=== PATIENT | female | born 1950 | race Caucasian/White ===

== ENCOUNTER 2019-05-18 19:17 | Inpatient (IN) | payer OTHER ==
[~2019-05-18] VITALS: Ht 175.3 cm; Wt 88.5 kg
--- OUTSIDE RECORDS SUMMARY | 2019-05-18 19:19 | XMS REPORT | Clinical Summary ---
Author Author [facility] Organization [facility] Address Unknown Phone Unavailable Care Team Providers Care Load Manager Name Role Phone Lorne Whitfield MD PCP Allergies Comments Active Allergy Reactions Severity Noted Date Adhesive Tape-Silicones 02/24/2018 Codeine Rash High 11/11/2017 Medications End Date Status Medication Sig Dispensed Refills Start Date Active aspirin (ECOTRIN) 81 MG Take 81 mg by 0 enteric coated tablet mouth every morning. Active gabapentin (NEURONTIN) Take 1 270 capsule 3 300 mg capsule (300 7 capsuleIndications: mg total) by Uncontrolled type 2 mouth 3 diabetes mellitus with (three) times hyperglycemia, with a day. long-term current use of insulin (HCC) Active gentamicin (GARAMYCIN) To use at 0 0.1 % cream peritoneal 8 dialysis site Active lactulose (CHRONULAC) 10 20 g 2 (two) 0 gram/15 mL solution times a day 8 as needed. Active amLODIPine (NORVASC) 10 10 mg daily. 0 mg tablet 8 07/30/2019 Active insulin degludec (TRESIBA Inject 100 36 mL 3 FLEXTOUCH U-200) 200 Units under 8 unit/mL (3 mL) insulin the skin penIndications: every Uncontrolled type 2 morning. diabetes mellitus with hyperglycemia, with long-term current use of insulin (HCC), Essential hypertension Active traZODone (DESYREL) 150 Take 1 tablet 90 tablet 0 201 MG tabletIndications: (150 mg 8 Anxiety with depression total) by mouth nightly for 90 days. Active buPROPion XL (WELLBUTRIN Take 1 tablet 90 tablet 0 XL) 300 MG 24 hr (300 mg 8 tabletIndications: total) by Anxiety with depression mouth daily for 90 days. Active ONETOUCH VERIO strip test Use to test 3 strips blood glucose 8 3 times a day Active ONETOUCH VERIO SYSTEM USE ALONG 3 misc WITH TEST 8 STRIPS TO TEST BLOOD GLUCOSE 3 TIMES A DAY Active ULTRA THIN LANCETS 31 Use to test 3 gauge misc blood glucose 8 3 times a day Active ondansetron (ZOFRAN) 4 MG 0 tablet 8 09/29/2019 Active clopidogrel (PLAVIX) 75 Take 1 tablet 90 tablet 3 mg tabletIndications: (75 mg total) 8 Coronary artery disease by mouth of [place] artery of daily. [place] heart with stable angina pectoris ([facility]) Active carvedilol (COREG) 6.25 6.25 mg 2 0 MG tablet (two) times a 8 day with meals. Active furosemide (LASIX) 40 mg 0 tablet 8 12/18/2019 Active hydrALAZINE (APRESOLINE) Take 1 tablet 90 tablet 3 10 MG tabletIndications: (10 mg total) 9 Essential hypertension by mouth every morning. Take only if BP greater than 160 mmHg. 05/20/2019 Active semaglutide (OZEMPIC) Inject 0.25 1.5 mL 2 0.25 mg or 0.5 mg(2 mg under the 9 mg/1.5 mL) pen skin once a injectorIndications: Type week for 2 diabetes mellitus with days. other specified complication, with long-term current use of insulin ([facility]) 06/27/2019 Active tiZANidine (ZANAFLEX) 2 Take 1 tablet 30 tablet 2 MG tabletIndications: (2 mg total) 9 Essential hypertension by mouth every 8 (eight) hours as needed for muscle spasms for up to 90 days. 03/30/2020 Active escitalopram (LEXAPRO) 20 Take 1 tablet 90 tablet 3 MG tabletIndications: (20 mg total) 9 Anxiety with depression by mouth daily. 06/29/2019 Active triamcinolone (KENALOG) Apply 80 g 2 0.1 % topically 2 9 ointmentIndications: (two) times a Allergic contact day for 90 dermatitis, unspecified days. trigger Active acetaZOLAMIDE (DIAMOX) 0 500 mg capsule 9 Active PROLENSA 0.07 % 0 ophthalmic solution 9 Active moxifloxacin (VIGAMOX) 0 0.5 % ophthalmic solution 9 Active prednisoLONE acetate 0 (PRED FORTE) 1 % 9 ophthalmic suspension 06/06/2019 Active traMADol (ULTRAM) 50 mg Take 1 tablet 60 tablet 0 tabletIndications: (50 mg total) 9 Essential hypertension by mouth every 8 (eight) hours as needed for moderate pain for up to 30 days. 07/30/2018 Discontinued traZODone (DESYREL) 150 Take 1 tablet 90 tablet 0 MG tablet (150 mg 7 total) by mouth nightly for 90 days. 10/22/2018 fluticasone-vilanterol Inhale 1 30 each 11 (BREO ELLIPTA) 200-25 inhalations 7 mcg/dose blister with once daily. device powder for inhalationIndications: Chronic bronchitis, unspecified chronic bronchitis type (HCC) 10/29/2018 albuterol (VENTOLIN HFA) Inhale 2 18 g 11 90 mcg/actuation puffs every 6 7 inhalerIndications: (six) hours Chronic obstructive as needed for pulmonary disease with wheezing. acute exacerbation (HCC) 12/04/2018 Discontinued hydrALAZINE (APRESOLINE) Take 1 tablet 30 tablet 2 10 MG tabletIndications: (10 mg total) 8 Essential hypertension by mouth every morning for 90 days. Take only if BP greater than 160 mmHg. 05/26/2018 Discontinued tiZANidine (ZANAFLEX) 2 Take 1 tablet 90 tablet 3 MG tablet (2 mg total) 8 by mouth every 8 (eight) hours as needed for muscle spasms for up to 30 doses. 06/15/2018 Discontinued insulin detemir U-100 Inject 100 0 (LEVEMIR) 100 unit/mL Units under injection the skin nightly. 06/03/2018 albuterol (ACCUNEB) 1.25 Take 3 mL 225 mL 3 mg/3 mL nebulizer (1.25 mg 8 solutionIndications: total) by Bronchitis nebulization every 6 (six) hours as needed for wheezing for up to 90 days. 06/15/2018 Discontinued carvedilol (COREG) 12.5 Take 1 tablet 180 tablet 0 201 MG tabletIndications: (12.5 mg 8 Essential hypertension total) by mouth 2 (two) times a day with meals for 90 days. 12/18/2018 Discontinued furosemide (LASIX) 80 mg Take 80 mg by 0 tablet mouth every morning. 01/12/2019 Discontinued atorvastatin (LIPITOR) 40 Take 40 mg by 0 MG tablet mouth nightly. 01/12/2019 Discontinued HYDROcodone-acetaminophen Take 1 tablet 0 (NORCO) 7.5-325 mg per by mouth tablet every 6 (six) hours as needed for moderate pain. 09/29/2018 Discontinued omeprazole (PriLOSEC) 40 Take 40 mg by 0 MG capsule mouth every morning. 07/30/2018 Discontinued traMADol (ULTRAM) 50 mg Take 50 mg by 0 tablet mouth every 6 (six) hours as needed for moderate pain. 06/15/2018 Discontinued cephalexin (KEFLEX) 500 0 MG capsule 8 05/04/2019 insulin ASPART (NovoLOG) low dose 9 mL 3 100 unit/mL insulin pen sliding scale 8 before meals 06/15/2018 Discontinued buPROPion (WELLBUTRIN) 75 0 MG tablet 8 06/15/2018 Discontinued escitalopram (LEXAPRO) 10 Take 1 tablet 90 tablet 0 201 MG tabletIndications: (10 mg total) 8 Anxiety with depression by mouth daily for 90 days. 07/30/2018 Discontinued tiZANidine (ZANAFLEX) 2 Take 1 tablet 90 tablet 0 201 MG tablet (2 mg total) 8 by mouth every 8 (eight) hours as needed for muscle spasms for up to 90 days. 06/15/2018 Discontinued clonIDINE (CATAPRES) 0.1 0 MG tablet 8 09/02/2018 Discontinued escitalopram (LEXAPRO) 10 Take 1 tablet 90 tablet 0 201 MG tabletIndications: (10 mg total) 8 Anxiety with depression by mouth daily for 90 days. 07/31/2018 Discontinued buPROPion XL (WELLBUTRIN Take 1 tablet 90 tablet 0 XL) 150 MG 24 hr (150 mg 8 tabletIndications: total) by Anxiety with depression mouth daily for 90 days. 08/28/2018 Discontinued clonIDINE (CATAPRES-TTS) Place 1 patch 4 patch 2 0.2 mg/24 hrIndications: (0.2 mg 8 Essential hypertension total) on the skin once a week for 90 days. 09/14/2018 Discontinued tiZANidine (ZANAFLEX) 2 Take 1 tablet 90 tablet 0 MG tabletIndications: (2 mg total) 8 Essential hypertension by mouth every 8 (eight) hours as needed for muscle spasms for up to 90 days. 05/07/2019 Discontinued traMADol (ULTRAM) 50 mg Take 1 tablet 60 tablet 2 tabletIndications: (50 mg total) 8 Essential hypertension by mouth every 6 (six) hours as needed for moderate pain for up to 90 days. 09/29/2018 Discontinued clonIDINE (CATAPRES-TTS) Place 1 patch 4 patch 2 0.2 mg/24 hrIndications: (0.2 mg 8 Essential hypertension total) on the skin once a week for 90 days. 09/29/2018 Discontinued clonIDINE (CATAPRES) 0.1 0 MG tablet 8 03/31/2019 Discontinued escitalopram (LEXAPRO) 10 Take 1 tablet 90 tablet 3 MG tabletIndications: (10 mg total) 8 Anxiety with depression by mouth daily. 02/19/2019 Discontinued linagliptin (TRADJENTA) 5 Take 1 tablet 90 tablet 3 mg tabletIndications: (5 mg total) 8 Type 2 diabetes mellitus by mouth with other specified daily with complication, with breakfast. long-term current use of insulin (HCC) 12/01/2018 varenicline (CHANTIX Take 0.5 mg 53 tablet 0 STARTING MONTH BOX) 0.5 one daily on 8 mg (11)- 1 mg (42) days 1-2 and tabletIndications: 0.5 mg twice Tobacco dependence daily on days 4-7. Then 1 mg twice daily for a total of 12 weeks. 12/18/2018 Discontinued tiZANidine (ZANAFLEX) 2 TAKE 1 TABLET 90 tablet 0 MG tabletIndications: BY MOUTH 8 Essential hypertension EVERY 8 HOURS NEEDED FOR MUSCLE SPASM FOR UP TO 90 DAYS 10/29/2018 Discontinued clonIDINE (CATAPRES-TTS) Place 1 patch 12 patch 3 0.1 mg/24 hrIndications: (0.1 mg 8 Essential hypertension total) on the skin once a week. 11/28/2018 ipratropium (ATROVENT) Take 2.5 mL 75 mL 11 0.02 % nebulizer (0.5 mg 8 solutionIndications: COPD total) by exacerbation ([facility]) nebulization 4 (four) times a day for 30 days. ICD10- J44.1 11/03/2018 predniSONE (DELTASONE) 20 Take 1 tablet 10 tablet 0 mg tabletIndications: (20 mg total) 8 COPD exacerbation (HCC) by mouth 2 (two) times a day for 5 days. 12/18/2018 Discontinued hydrALAZINE (APRESOLINE) Take 1 tablet 90 tablet 3 10 MG tabletIndications: (10 mg total) 9 Essential hypertension by mouth every morning. Take only if BP greater than 160 mmHg. 01/14/2019 Discontinued gabapentin (NEURONTIN) Take 300 mg 0 300 mg capsule by mouth 2 (two) times a day. 03/29/2019 Discontinued tiZANidine (ZANAFLEX) 2 Take 1 tablet 30 tablet 2 MG tabletIndications: (2 mg total) 9 Essential hypertension by mouth every 8 (eight) hours as needed for muscle spasms for up to 90 days. 02/13/2019 ipratropium-albuterol Take 3 mL by 360 mL 0 (DUO-NEB) 0.5-2.5 mg/mL nebulization 9 nebulizer 4 (four) times a day for 30 days. 01/25/2019 predniSONE (DELTASONE) 10 Take 1 tablet 10 tablet 0 mg tablet (10 mg total) 9 by mouth daily for 10 days. 01/25/2019 flash glucose scanning 1 kit once 1 each 0 reader (FREESTYLE NIRAJ for 1 dose. 9 14 DAY READER) miscIndications: Type 2 diabetes mellitus with other specified complication, with long-term current use of insulin ([facility]) 02/24/2019 flash glucose sensor 1 Device 2 kit 0 (FREESTYLE NIRAJ 14 DAY every 14 9 SENSOR) kitIndications: (fourteen) Type 2 diabetes mellitus days for 30 with other specified days. complication, with long-term current use of insulin ([facility]) 04/25/2019 varenicline (CHANTIX) 0.5 Take 1 tablet 90 tablet 0 MG tabletIndications: (0.5 mg 9 Type 2 diabetes mellitus total) by with other specified mouth daily complication, with for 90 days. long-term current use of Take with insulin ([facility]) full glass of water. Status Hospital, Clinic, or Ordered Dose Route Frequency Start End Date Other Facility Date Administered Medication Ended methylPREDNISolone 80 mg IM once 10/29/20 acetate (DEPO-MEDROL) 18 8 injection 80 mgIndications: COPD exacerbation (HCC) Ended dexamethasone (DECADRON) 4 mg IM once 10/29/20 injection 4 18 8 mgIndications: COPD exacerbation (HCC) Ended albuterol (ACCUNEB) 2.5 mg nebu once 10/29/20 nebulizer solution 2.5 18 8 mgIndications: COPD exacerbation (HCC) Ended ipratropium (ATROVENT) 0.5 mg nebu once 10/29/20 0.02 % nebulizer solution 18 8 0.5 mgIndications: COPD exacerbation (HCC) Ended triamcinolone acetonide 40 mg IAtc once 05/05/20 (KENALOG-40) injection 40 19 9 mgIndications: Chronic right shoulder pain Active Problems Problem Noted Date Chronic right shoulder pain 05/05/2019 Last Assessment & Plan: Ddx adhesive capsulitis vs arthritis vs tendinopathy Administered IA injection; tolerated well General precautions given Return to clinic as needed Chronic combined systolic and diastolic congestive heart failure 01/26/2019 Last Assessment & Plan: Reduce bb due to fluid overload, hypotension Return to clinic in 2 weeks High risk pt Follow up with cardiology Acute combined systolic and diastolic congestive heart failure 01/12/2019 Right arm numbness 12/19/2018 Last Assessment & Plan: Suspected cubital tunnel syndrome reassured patient; neurologically intact Follow up in 1 month or earlier Diabetes mellitus 09/02/2018 Postmenopausal state 05/15/2018 Encounter for screening mammogram for breast cancer 05/15/2018 Encounter for colorectal cancer screening 05/15/2018 Anxiety with depression 05/15/2018 Last Assessment & Plan: Increase dose of lexapro to 20 mg po daily Overweight (BMI 25.0-29.9) 05/15/2018 Last Assessment & Plan: High BMI Follow-Up/Intervention: Discussed the patient's BMI with her Body mass index is 28.21 kg/m. The BMI follow up plan was Discussed diet and exercise and 1500 kcal diet Acute right ankle pain 05/04/2018 PD catheter dysfunction 04/27/2018 Coronary artery disease involving [place] coronary artery of [place] heart 11/19/2017 ESRD (end stage renal disease) 10/22/2017 Last Assessment & Plan: Renal condition is worsening. Fluid restriction. hospital evaluation Renal condition will be reassessed on next appt. Obstructive chronic bronchitis without exacerbation 03/07/2017 Chronic midline low back pain 02/25/2017 Gastroesophageal reflux disease 02/25/2017 Chronic low back pain 12/10/2016 Mixed hyperlipidemia 12/10/2016 Last Assessment & Plan: Lipid abnormalities are stable.. Nutritional counseling was provided. and Pharmacotherapy as ordered. Lipids will be reassessed in 3 months. Uncontrolled type 2 diabetes mellitus with hyperglycemia, with long-term 11/12/2016 current use of insulin Last Assessment & Plan: Uncontrolled. Resume insulin daily; monitor FS glucose rtc in 1 month Essential hypertension 11/12/2016 Last Assessment & Plan: renotensive disorder; follow closely with nephrology Low-sodium diet Return to clinic in 4 weeks Shortness of breath 11/12/2016 Last Assessment & Plan: Shortness of breath likely secondary to CHF/COPD exacerbation, ESRD; high complication risk patient. Referred to hospital for admission/eval/treatment of current condition Pt and daughter in exam room agreeable to plan of care; Follow up in the office upon discharge. Tobacco dependence 11/12/2016 Last Assessment & Plan: Tobacco use is improving with treatment. Smoking cessation counseling was provided. Pharmacotherapy was prescribed as ordered. Tobacco use will be reassessed in 4 weeks. COPD exacerbation 11/12/2016 Last Assessment & Plan: Copd is exacerbated complains of by CHF, ESRD Discussed hospitalization for further evaluation and management Resolved Problems Problem Noted Date Resolved Date Medicare annual wellness visit, subsequent 05/15/2018 07/31/2018 Last Assessment & Plan: 67 y.o. female who was seen today for Medicare Wellness visit with no complaints. Depression screening: Positive. The following follow-up(s) have been documented: pharmacological interventions. Fall risk screening:: No action taken. ADL's: independent for UE/LE dressing, toileting, brush teeth, and washface with no assistive devices. Tobacco use screening and follow up: reports that she has been smoking Cigarettes. She has a 27.50 pack-year smoking history. She has never used smokeless tobacco. Counseled for 3 minutes. BMI Follow-Up/Intervention: Discussed the patient's BMI with her. Body mass index is 28.21 kg/m. The BMI follow up plan was Discussed diet and exercise Encounters Care Team Description Date Type Specialty Filipe Price MD Allencherril, Paul Joseph, MD Peritoneal dialysis catheter dysfunction, initial encounter (HCC) (Primary Dx) 05/17/2019 Emergency Emergency Medicine Rivera Carter MD ESRD (end stage renal disease) (HCC) 05/14/2019 Hospital Radiology Encounter Rivera Carter MD ESRD (end stage renal disease) (HCC) (Primary Dx) 05/14/2019 Transcribe Access Orders Lorne Whitfield MD Essential hypertension 05/06/2019 Refill Family Medicine Lorne Whitfield MD Chronic right shoulder pain (Primary Dx); ESRD (end stage renal disease) (HCC); Type 2 diabetes mellitus with other specified complication, with long-term current use of insulin (HCC); Mixed hyperlipidemia; Essential hypertension 05/05/2019 Office Visit Family Peter Harding MD 04/06/2019 Anesthesia General Surgery Event Iker Avila MD 04/06/2019 Hospital General Surgery Encounter Lorne Whitfield MD Allergic contact dermatitis, unspecified trigger (Primary Dx); Anxiety with depression; Essential hypertension 03/31/2019 Office Visit Family Medicine Deena Hills MA Essential hypertension 03/29/2019 Refill Family Lorne Holedn MD Type 2 diabetes mellitus with other specified complication, with long-term current use of insulin (HCC) (Primary Dx); Essential hypertension 02/19/2019 Office Visit Family Karissa Jamison MA Type 2 diabetes mellitus with other specified complication, with long-term current use of insulin (HCC) (Primary Dx) 02/19/2019 Orders Only Lorne Shannon MD Type 2 diabetes mellitus with other specified complication, with long-term current use of insulin (HCC) (Primary Dx); COPD exacerbation (HCC); Chronic combined systolic and diastolic congestive heart failure (HCC); Essential hypertension 01/25/2019 Office Visit Family Sofia Duran RN 01/14/2019 Patient Quality Outreach Ranjit Baird MD COPD exacerbation (HCC) (Primary Dx) 01/12/2019 [facility] Internal Medicine - Encounter 01/14/2019 Lorne Whitfield MD Shortness of breath (Primary Dx); COPD exacerbation (HCC); Acute combined systolic and diastolic congestive heart failure (HCC); Essential hypertension; ESRD (end stage renal disease) (HCC) 01/11/2019 Office Visit Lorne Shannon MD Coronary artery disease of [place] artery of [place] heart with stable angina pectoris (HCC) (Primary Dx); Essential hypertension; Right arm numbness 12/18/2018 Office Visit Lorne Shannon MD Essential hypertension 12/04/2018 Orders Only Lorne Shannon MD COPD exacerbation (HCC) (Primary Dx); Essential hypertension 10/29/2018 Office Visit Lorne Shannon MD Essential hypertension (Primary Dx); Coronary artery disease of [place] artery of [place] heart with stable angina pectoris (HCC) 09/29/2018 Office Visit oLrne Shannon MD Essential hypertension 09/14/2018 Refill Lorne Shannon MD Essential hypertension 09/09/2018 Refill Lorne Shannon MD 09/08/2018 Telephone Lorne Shannon MD Type 2 diabetes mellitus with other specified complication, with long-term current use of insulin (HCC) (Primary Dx); Anxiety with depression; Tobacco dependence 09/02/2018 Office Visit Karissa Arroyo MA Essential hypertension 08/28/2018 Refill Lorne Shannon MD Anxiety with depression (Primary Dx); Uncontrolled type 2 diabetes mellitus with hyperglycemia, with long-term current use of insulin; Essential hypertension 07/30/2018 Office Visit Lorne Shannon MD 07/30/2018 Telephone Lorne Shannon, MD 07/27/2018 Refill Family Medicine Lorne Whitfield MD 07/24/2018 Telephone Family Medicine Lorne Whitfield MD Essential hypertension (Primary Dx); Anxiety with depression; Tobacco dependence 06/15/2018 Office Visit Family Medicine Lorne Whitfield MD Postmenopausal state 06/03/2018 Hospital Radiology Encounter Lorne Whitfield MD 05/26/2018 Refill Family Medicine after 05/17/2018 Immunizations Name Dates Previously Given Next Due Influenza Trivalent 02/19/2019 (Deferred: Patient Refused - SHE DOES NOT LIKE VACCINES) Family History Medical History Relation Name Comments Heart disease Brother COPD Father Breast cancer Mother Relation Name Status Comments Brother Father Mother Social History Date Tobacco Use Types Packs/Day Years Used Current Every Day Smoker Cigarettes 0.5 55 Smokeless Tobacco: Never Used Tobacco Cessation: Ready to Quit: No; Counseling Given: Yes Alcohol Use Drinks/Week oz/Week Comments No Sex Assigned at Date Recorded Not on file Industry Job Start Date Occupation Not on file Not on file Not on file Travel End Travel History Travel Start No recent travel history available. Last Filed Vital Signs Time Taken Vital Sign Reading 05/17/2019 12:05 PM CDT Blood Pressure 220/106 05/17/2019 12:05 PM CDT Pulse 92 05/17/2019 12:05 PM CDT Temperature 36.7 C (98 F) 05/17/2019 12:05 PM CDT Respiratory Rate 26 05/17/2019 12:05 PM CDT Oxygen Saturation 97% - Inhaled Oxygen - Concentration 05/17/2019 12:01 PM CDT Weight 86.2 kg (190 lb) 05/17/2019 12:01 PM CDT Height 175.3 cm (5' 9") 05/17/2019 12:01 PM CDT Body Mass Index 28.06 Plan of Treatment Health Maintenance Due Date Last Done Comments DIABETIC RETINAL EYE EXAM 1949 DIABETIC FOOT EXAM 1959 COLONOSCOPY SCREENING 1999 SHINGLES VACCINES (#1) 1999 65+ PNEUMOCOCCAL VACCINE 2014 (1 of 2 - PCV13) INFLUENZA VACCINE 11/09/2019 Postponed from 06/10/2019 (Patient Refused) BREAST CANCER SCREENING 05/15/2020 05/15/2018, 05/15/2018, 11/02/2015, Additional history exists Implants Device Identifier Shelf Expiration Date Model / Serial / Lot Implanted Type Area Manufactur er 07/10/2019 [id number] / / [id number] Catheter Dialysis Glidepath Implantabl N/A: N/A BARD [id number] Symmetric Tip - e Infusion PERIPHERAL [id number] Ports or VASCULAR Implanted: 01/30/2018 (Quantity not Accessorie on file) s Procedures Comments Procedure Name Priority Date/Time Associated Diagnosis CT ABDOMEN PELVIS WO STAT 05/17/2019 CONTRAST 5:44 PM CDT ESTIMATED GFR STAT 05/17/2019 4:07 PM CDT BASIC METABOLIC PANEL STAT 05/17/2019 4:07 PM CDT HC COMPLETE BLD COUNT STAT 05/17/2019 W/AUTO DIFF 4:07 PM CDT XR ABDOMEN 1 VW Routine 05/14/2019 ESRD (end stage renal 2:33 PM CDT disease) ([facility]) LIPID PANEL WITH REFLEX Routine 05/05/2019 Mixed hyperlipidemia TO DIRECT LDL 4:01 PM CDT HEMOGLOBIN A1C Routine 05/05/2019 Type 2 diabetes mellitus 4:01 PM CDT with other specified complication, with long-term current use of insulin (HCC) CBC WITH PLATELET AND Routine 05/05/2019 Type 2 diabetes mellitus DIFFERENTIAL 4:01 PM CDT with other specified complication, with long-term current use of insulin ([facility]) COMPREHENSIVE METABOLIC Routine 05/05/2019 ESRD (end stage renal PANEL 4:01 PM CDT disease) ([facility]) URINE PROTEIN/CREATININE Routine 05/05/2019 ESRD (end stage renal RATIO, RANDOM 4:01 PM CDT disease) ([facility]) PARATHYROID HORMONE Routine 05/05/2019 ESRD (end stage renal 4:01 PM CDT disease) ([facility]) PHOSPHORUS LEVEL Routine 05/05/2019 ESRD (end stage renal 4:01 PM CDT disease) ([facility]) URIC ACID LEVEL Routine 05/05/2019 ESRD (end stage renal 4:01 PM CDT disease) ([facility]) MAGNESIUM LEVEL Routine 05/05/2019 ESRD (end stage renal 4:01 PM CDT disease) ([facility]) JOINT Routine 05/05/2019 Chronic right shoulder ASPIRATION/INJECTION 2:30 PM CDT pain POTASSIUM LEVEL Routine 04/06/2019 7:30 AM CDT POC GLUCOSE Routine 01/14/2019 10:46 AM [employer]IDENTIAL [employer]IVER POC GLUCOSE Routine 01/14/2019 9:09 AM [employer]IDENTIAL [employer]IVER XR CHEST 1 VW PORTABLE Routine 01/14/2019 7:53 AM [employer]IDENTIAL DRIVER POC GLUCOSE Routine 01/14/2019 6:02 AM [employer]IDENTIAL DRIVER B NATRIURETIC PEPTIDE Routine 01/14/2019 6:00 AM [employer]IDENTIAL DRIVER ESTIMATED GFR Routine 01/14/2019 6:00 AM [employer] RESIDENTIAL DRIVER PHOSPHORUS LEVEL Routine 01/14/2019 6:00 AM [employer] RESIDENTIAL DRIVER MAGNESIUM LEVEL Routine 01/14/2019 6:00 AM [employer]IDENTIAL DRIVER HC COMPLETE BLD COUNT Routine 01/14/2019 W/AUTO DIFF 6:00 AM [employer]IDENTIAL DRIVER BASIC METABOLIC PANEL Routine 01/14/2019 6:00 AM [employer] RESIDENTIAL DRIVER POC GLUCOSE Routine 01/14/2019 5:36 AM [employer]IDENTIAL DRIVER POC GLUCOSE Routine 01/14/2019 5:34 AM [employer]IDENTIAL DRIVER POC GLUCOSE Routine 01/13/2019 8:10 PM [employer] CT CHEST WO CONTRAST Routine 01/13/2019 5:34 PM [employer]IAL [employer]IVER POC GLUCOSE Routine 01/13/2019 4:02 PM [employer]IDENTIAL [employer]IVER HEPATITIS B SURFACE STAT 01/13/2019 ANTIGEN 1:46 PM FRONT LOADER RESIDENTIAL DRIVER POC GLUCOSE Routine 01/13/2019 11:36 AM FRONT LOADER RESIDENTIAL DRIVER POC GLUCOSE Routine 01/13/2019 5:43 AM FRONT LOADER RESIDENTIAL DRIVER ESTIMATED GFR Routine 01/12/2019 8:42 PM FRONT LOADER RESIDENTIAL DRIVER BASIC METABOLIC PANEL Routine 01/12/2019 8:42 PM FRONT LOADER RESIDENTIAL DRIVER HC COMPLETE BLD COUNT Routine 01/12/2019 W/AUTO DIFF 8:42 PM FRONT LOADER RESIDENTIAL DRIVER POC GLUCOSE Routine 01/12/2019 8:18 PM FRONT LOADER RESIDENTIAL DRIVER XR CHEST 2 VW Routine 01/12/2019 7:08 PM FRONT LOADER RESIDENTIAL DRIVER BONE DENSITY Routine 06/03/2018 Postmenopausal state 11:48 AM CDT after 05/17/2018 Results * CT Abdomen Pelvis Wo Contrast (05/17/2019 5:44 PM CDT) Specimen Narrative Performed At EXAMINATION:CT ABDOMEN PELVIS WO CONTRAST HM [facility] CLINICAL HISTORY:eval placement of peritoneal dialysis catheter TECHNIQUE: Multiple axial images of the abdomen and pelvis were obtained without intravenous administration of iodinated contrast. Sagittal and coronal computerized reformatted images were also obtained. The lack of intravenous contrast reduces the sensitivity of detecting solid organ disease.Automatic exposure control or iterative reconstruction techniques used to reduce dose. COMPARISON:02/20/2013 Impression: 1.Bilateral pleural effusions have developed since prior study, moderate and somewhat loculated on the right, and small on the left. Basilar consolidations probably due to atelectasis noted. 2.Without IV contrast, evaluation of solid organs of upper abdomen is limited. 2.3 cm left adrenal low-density nodule consistent with adenoma again noted. Right kidney has become severely atrophic. Left kidney upper pole again atrophic. Possibility of underlying renal artery stenosis should be considered given appearance. 3.Peritoneal dialysis catheter is noted, tip terminating in the pelvis in the interloop region with small bowel loops nearby. No significant hematoma along the abdominal wall. No significant kink or catheter breakage noted. 4.Bowel gas pattern is nonobstructive. Scattered diverticulosis of distal colon. Osseous structures are intact. Summary: 1.Peritoneal dialysis catheter in the pelvis is noted above. 2.Multiple other findings including atrophic kidneys, loculated pleural effusions, are as noted above. [facility]-[id number] Procedure Note Interface, Radiology Results Incoming - 05/17/2019 6:00 PM CDT EXAMINATION: CT ABDOMEN PELVIS WO CONTRAST CLINICAL HISTORY: eval placement of peritoneal dialysis catheter TECHNIQUE: Multiple axial images of the abdomen and pelvis were obtained without intravenous administration of iodinated contrast. Sagittal and coronal computerized reformatted images were also obtained. The lack of intravenous contrast reduces the sensitivity of detecting solid organ disease.Automatic exposure control or iterative reconstruction techniques used to reduce dose. COMPARISON: 02/20/2013 Impression: 1. Bilateral pleural effusions have developed since prior study, moderate and somewhat loculated on the right, and small on the left. Basilar consolidations probably due to atelectasis noted. 2. Without IV contrast, evaluation of solid organs of upper abdomen is limited. 2.3 cm left adrenal low-density nodule consistent with adenoma again noted. Right kidney has become severely atrophic. Left kidney upper pole again atrophic. Possibility of underlying renal artery stenosis should be considered given appearance. 3. Peritoneal dialysis catheter is noted, tip terminating in the pelvis in the interloop region with small bowel loops nearby. No significant hematoma along the abdominal wall. No significant kink or catheter breakage noted. 4. Bowel gas pattern is nonobstructive. Scattered diverticulosis of distal colon. Osseous structures are intact. Summary: 1. Peritoneal dialysis catheter in the pelvis is noted above. 2. Multiple other findings including atrophic kidneys, loculated pleural effusions, are as noted above. [facility]-[id number] Performing Organization Address City/State/Zipcode Phone Number [facility] [address] [place] [address] * Estimated GFR (05/17/2019 4:07 PM CDT) Only the most recent of 3 results within the time period is included. Estimated GFR 11 (A) mL/min/1.73 m2 [place] Comment: CATHOLIC Jazmin [facility] G1 >=90 Normal or high G2 60-89Mildly decreased T0d21-06 Mildly to moderately decreased D0c41-47 Moderately to severely decreased G4 15-29Severely decreased G5 <15Kidney failure The eGFR was calculated using the Chronic Kidney Disease Epidemiology Collaboration (CKD-EPI) equation. Interpretation is based on recommendations of the National Kidney Foundation-Kidney Disease Outcomes Quality Initiative (NKF-KDOQI) published in 2014. Specimen Plasma specimen Performing Organization Address City/State/Zipcode Phone Number [facility] DEPARTMENT OF [address] [facility] [place] [address] PATHOLOGY AND GENOMIC MEDICINE [facility] [address] [place] [address] HOSPITAL * CBC with platelet and differential (05/17/2019 4:07 PM CDT) Only the most recent of 4 results within the time period is included. WBC 8.6 4.2 - 11.0 k/uL [facility] RBC 3.28 (L) 4.04 - 5.86 m/uL [facility] HGB 9.6 (L) 11.5 - 15.3 g/dL [facility] HCT 31.1 (L) 34.0 - 45.0 % [facility] MCV 94.8 80.0 - 98.0 fL [facility] MCH 29.3 27.0 - 34.0 pg [facility] MCHC 30.9 (L) 31.5 - 36.5 g/dL [facility] RDW - SD 50.0 37.0 - 51.0 fL [facility] MPV 10.0 7.4 - 10.4 fL [facility] Platelet count 299 150 - 400 k/uL [facility] Nucleated RBC 0.00 /100 WBC [facility] Neutrophils 61.7 36.0 - 66.0 % [facility] Lymphocytes 26.0 24.0 - 44.0 % [facility] Monocytes 6.4 (H) 0.0 - 6.0 % [facility] Eosinophils 4.8 0.0 - 6.0 % [facility] Basophils 0.3 0.0 - 1.2 % [facility] Immature 0.8 0.0 - 1.0 % [facility] Specimen Blood Performing Organization Address City/State/Zipcode Phone Number [facility] DEPARTMENT OF [address] [place] [phone] PATHOLOGY AND GENOMIC MEDICINE [address] * Basic metabolic panel (05/17/2019 4:07 PM CDT) Only the most recent of 3 results within the time period is included. Sodium 143 135 - 150 mEq/L [facility] Potassium 3.6 3.5 - 5.0 mEq/L [facility] Chloride 104 98 - 112 mEq/L [facility] CO2 28 24 - 31 mmol/L [facility] Anion gap 11@ANIO 7 - 15 mEq/L [facility] BUN 29 (H) 7 - 18 mg/dL [facility] Creatinine 4.00 (H) 0.50 - 0.90 mg/dL [facility] Glucose 144 (H) 65 - 100 mg/dL [facility] Calcium 9.0 8.8 - 10.2 mg/dL [facility] Specimen Plasma specimen Performing Organization Address City/State/Zipcode Phone Number [facility] DEPARTMENT OF [address] [place] [phone] PATHOLOGY AND GENOMIC MEDICINE [address] * XR Abdomen 1 Vw (05/14/2019 2:33 PM CDT) Specimen Narrative Performed At EXAMINATION:XR ABDOMEN 1 VW [facility] CLINICAL HISTORY:N18.6 End stage renal disease, ESRD COMPARISON:None. FINDINGS: XR ABDOMEN 1 VW images are submitted. The bowel gas pattern is nonspecific. No pathologic masses or calcifications are identified. The catheter seen within the pelvis most likely representing a dialysis catheter. Moderate colonic fecal retention is present. There is no small bowel obstruction. Surgical clips are seen within the right upper quadrant most likely representing prior cholecystectomy. IMPRESSION: 1. There is no bowel obstruction present. 2. A catheter is seen in the pelvis most likely representing peritoneal dialysis catheter. [id number] Procedure Note Interface, Radiology Results Incoming - 05/14/2019 2:41 PM CDT EXAMINATION: XR ABDOMEN 1 VW CLINICAL HISTORY: N18.6 End stage renal disease, ESRD COMPARISON: None. FINDINGS: XR ABDOMEN 1 VW images are submitted. The bowel gas pattern is nonspecific. No pathologic masses or calcifications are identified. The catheter seen within the pelvis most likely representing a dialysis catheter. Moderate colonic fecal retention is present. There is no small bowel obstruction. Surgical clips are seen within the right upper quadrant most likely representing prior cholecystectomy. IMPRESSION: 1. There is no bowel obstruction present. 2. A catheter is seen in the pelvis most likely representing peritoneal dialysis catheter. [id number] Performing Organization Address City/State/Zipcode Phone Number [facility] [address] [place] [address] * LIPID PANEL WITH REFLEX TO DIRECT LDL (05/05/2019 4:01 PM CDT) Cholesterol, 220 (H) <200 mg/dL [facility] [place] HDL cholesterol 39 (L) >50 mg/dL [facility] [place] Triglycerides 158 (H) <150 mg/dL [facility] [place] LDL cholesterol 152 (H) mg/dL (calc) [facility] calculated Comment: DIAGNOSTICS Reference range: <100 [place] Desirable range <100 mg/dL for primary prevention; <70 mg/dL for patients with CHD or diabetic patients with > or=2 CHD risk factors. LDL-C is now calculated using the Ángel-Reid calculation, which is a validated novel method providing better accuracy than the Friedewald equation in the estimation of LDL-C. Ángel SS et al. LARRY. 2013;310(19): 2367-4258 (http://education.[employer].H2scan/faq/GTM866) Cholesterol/HDL 5.6 (H) <5.0 (calc) [facility] [place] Non-HDL 181 (H) <130 mg/dL (calc) [facility] cholesterol Comment: DIAGNO[facility] For patients with diabetes [place] plus 1 major ASCVD risk factor, treating to a non-HDL-C goal of <100 mg/dL (LDL-C of <70 mg/dL) is considered a therapeutic option. Specimen Narrative Performed At FASTING:NO [facility] FASTING: NO Resulting Agency Comment Performing Organization Information: Site ID: [id number] Name: [facility] Address: [address] [place] [phone] Director: Rocío Salas Performing Organization Address [facility] Phone Number [employer] [address] [address] * Urine protein/creatinine ratio, random (05/05/2019 4:01 PM CDT) Creatinine, 140 20 - 275 mg/dL [facility] urine, random [facility] [place] Prot/creat 3,857 (H) 21 - 161 mg/g creat [facility] ratio, urine [facility] [place] Protein, urine 540 (H) 5 - 24 mg/dL [facility] random Comment: DIAGNOSTICS Results verified by repeat [place] analysis on dilution. Specimen Urine Narrative Performed At FASTING:NO [facility] FASTING: NO Resulting Agency Comment Performing Organization Information: Site ID: A Name: [facility] Address: [address] [place] [phone] Director: Rocío Salas Performing Organization Address [facility] [place] [address] * Uric acid level (05/05/2019 4:01 PM CDT) Uric acid 9.1 (H) 2.5 - 7.0 mg/dL [facility] Comment: DIAGNOSTICS Therapeutic target for gout [place] patients: <6.0 mg/dL Specimen Blood Narrative Performed At FASTING:NO [facility] FASTING: NO Resulting Agency Comment Performing Organization Information: Site ID: A Name: [facility] Address: [address] [place] [phone] Director: Rocío Salas Performing Organization Address [facility] [place] [address] * Phosphorus level (05/05/2019 4:01 PM CDT) Only the most recent of 2 results within the time period is included. Phosphorus 6.5 (H) 2.1 - 4.3 mg/dL [employer] [place] Specimen Blood Narrative Performed At FASTING:NO [facility] FASTING: NO Resulting Agency Comment Performing Organization Information: Site ID: A Name: [facility] Address: [address] [place] [phone] Director: Rocío Salas Performing Organization Address [facility]/Zipcode Phone Number [facility] [place] [address] [place] [phone] * Parathyroid hormone (05/05/2019 4:01 PM CDT) PTH 682 (H) 14 - 64 pg/mL [facility] Comment: [facility]NOSTICS-MERT Interpretive ING II GuideIntact PTH Calcium ------ ------- Normal ParathyroidNormal Normal HypoparathyroidismLow or Low NormalLow Hyperparathyroidism Primary Normal or High High SecondaryH igh Normal or Low Tertiary High High Non-Parathyroid HypercalcemiaLow or Low NormalHigh Specimen Blood Narrative Performed At FASTING:NO [facility] FASTING: NO Resulting Agency Comment Performing Organization Information: Site ID: [id number] Name: [facility] Address: [address] [place] [phone] Director: Dr. Dewayne Nguyen Performing Organization Address [facility] Phone Number [employer] [address] II * Magnesium level (05/05/2019 4:01 PM CDT) Only the most recent of 2 results within the time period is included. Magnesium 1.2 (L) 1.5 - 2.5 mg/dL [employer] [place] Specimen Blood Narrative Performed At FASTING:NO [facility] FASTING: NO Resulting Agency Comment Performing Organization Information: Site ID: [id number] Name: [facility] Address: [address] [place] [phone] Director: Rocío Salas Performing Organization Address [facility] Phone Number [employer] [address] [address] * Hemoglobin A1c (05/05/2019 4:01 PM CDT) Hemoglobin A1C 8.3 (H) <5.7 % of total Hgb [facility] Comment: DI[facility]NOST[facility] For someone without known [place] diabetes, a hemoglobin A1c value of 6.5% or greater indicates that they may have diabetes and this should be confirmed with a follow-up test. For someone with known diabetes, a value <7% indicates that their diabetes is well controlled and a value greater than or equal to 7% indicates suboptimal control. A1c targets should be individualized based on duration of diabetes, age, comorbid conditions, and other considerations. Currently, no consensus exists regarding use of hemoglobin A1c for diagnosis of diabetes for children. Specimen Blood Narrative Performed At FASTING:NO [facility] FASTING: NO Resulting Agency Comment Performing Organization Information: Site ID: RGA Name: [facility] Address: [address] [place] [phone] Director: Rocío Salas Performing Organization Address City/State/Zipcode Phone Number [facility] [employer] [facility] [address] [phone] * Comprehensive metabolic panel (05/05/2019 4:01 PM CDT) [facility] Glucose 203 (H) 65 - 139 mg/dL [facility] Comment: DIAGNOSTICS Non-fasting [place] reference interval BUN, whole 41 (H) 7 - 25 mg/dL [facility] blood [facility] [place] Creatinine 4.68 (H) 0.50 - 0.99 mg/dL [facility] Comment: DIAGNOSTICS For patients >49 years of age, [place] the reference limit for Creatinine is approximately 13% higher for people identified as -Armenian. EGFR Non-Afr. 9 (L) > OR=60 [facility] Armenian mL/min/1.73m2 [facility] [place] EGFR 10 (L) > OR=60 [facility] Armenian mL/min/1.73m2 [facility] [place] BUN/creatinine 9 6 - 22 (calc) [facility] [place] Sodium 137 135 - 146 mmol/L [facility] [place] Potassium 3.3 (L) 3.5 - 5.3 mmol/L [facility] [place] Chloride 99 98 - 110 mmol/L [facility] [place] CO2 27 20 - 32 mmol/L [facility] [place] Calcium 7.4 (L) 8.6 - 10.4 mg/dL [facility] [place] Protein 5.6 (L) 6.1 - 8.1 g/dL [facility] [place] Albumin, S 3.0 (L) 3.6 - 5.1 g/dL [facility] [place] Globulin, total 2.6 1.9 - 3.7 g/dL [facility] (calc) [facility] [place] Albumin/globuli 1.2 1.0 - 2.5 (calc) [facility] n ratio [facility] [place] Total bilirubin 0.3 0.2 - 1.2 mg/dL [facility] [place] Alkaline 123 33 - 130 U/L [facility] phosphatase [facility] [place] AST 9 (L) 10 - 35 U/L [facility] [place] ALT 6 6 - 29 U/L [facility] [place] Specimen Blood Narrative Performed At FASTING:NO [facility] FASTING: NO Resulting Agency Comment Performing Organization Information: Site ID: [id number] Name: [facility] Address: [address] [place] [phone] Director: Rocío Salas Performing Organization Address City/State/Zipcode Phone Number [facility] [employer] [place] [phone] * Arthrocentesis: shoulder, right (05/05/2019 2:30 PM CDT) Narrative Performed At Lorne Whitfield MD 05/05/2019 10:00 PM Arthrocentesis: shoulder, right Consent given by: patient Site marked: site marked Supporting Documentation Indications: pain Procedure Details Preparation: Patient was prepped and draped in the usual sterile fashion Ultrasound guided: no Injection Type: joint Location: shoulder - right Right side: Needle size: 25 G Approach: posterior * Potassium level (04/06/2019 7:30 AM CDT) [facility] Potassium 2.8 (LL) 3.5 - 5.0 mEq/L [facility] Specimen Plasma specimen Performing Organization Address City/[facility] [place] [address] PATHOLOGY AND [facility] MEDICINE [address] * POC glucose (01/14/2019 10:46 AM FRONT LOADER RESIDENTIAL DRIVER) Only the most recent of 10 results within the time period is included. Pathologist [facility] POC glucose 195 (H) 65 - 100 mg/dL [place] Comment: [facility] Meter ID: [id number] [facility] [employer] Checker: Flory Gusman [facility] Specimen Performing Organization Address City/[facility]/[place] [address] PATHOLOGY AND GENOMIC MEDICINE [address] * XR Chest 1 Vw Portable (01/14/2019 7:53 AM FRONT LOADER RESIDENTIAL DRIVER) Specimen Narrative Performed At EXAMINATION:XR CHEST 1 VW PORTABLE [facility] CLINICAL HISTORY:CAD riskhighasymptomatic COMPARISON:01/12/2019 IMPRESSION: Marked upper lung predominant pulmonary emphysema. Peripheral scarring in the right upper lobe with cavitation is better depicted on recent CT. No new airspace disease is noted. Lung bases demonstrate mild congestion, atelectasis, along with small pleural effusions. Normal cardiomediastinal silhouette. No pneumothorax. [facility]-[id number] Procedure Note Hm Interface, Radiology Results Incoming - 01/14/2019 7:59 AM FRONT LOADER RESIDENTIAL DRIVER EXAMINATION: XR CHEST 1 VW PORTABLE CLINICAL HISTORY: CAD risk high asymptomatic COMPARISON: 01/12/2019 IMPRESSION: Marked upper lung predominant pulmonary emphysema. Peripheral scarring in the right upper lobe with cavitation is better depicted on recent CT. No new airspace disease is noted. Lung bases demonstrate mild congestion, atelectasis, along with small pleural effusions. Normal cardiomediastinal silhouette. No pneumothorax. [facility]-[id number] Performing Organization Address City/[facility]/Zipcode Phone Number [facility] [address] [place] [address] * B natriuretic peptide (01/14/2019 6:00 AM FRONT LOADER RESIDENTIAL DRIVER) BNP 828 (H) 0 - 100 pg/mL [facility] Specimen Blood Performing Organization Address City/State/Zipcode Phone Number [facility] DEPARTMENT OF [address] [place] [id number] PATHOLOGY AND GENOMIC MEDICINE [address] * CT Chest Wo Contrast (01/13/2019 5:34 PM FRONT LOADER RESIDENTIAL DRIVER) Specimen Narrative Performed At EXAMINATION:CT CHEST WO CONTRAST [facility] CLINICAL HISTORY:COPD exacerbationcomplicated COMPARISON:01/26/2018 TECHNIQUE:CT of the chest without intravenous contrast. Absence of contrast decreases sensitivity for detection of focal lesions and vascular pathology. CT imaging was performed with iterative reconstruction techniques and/or automated exposure control to reduce radiation dose. FINDINGS: LUNGS and PLEURA:There are advanced destructive centrilobular emphysematous changes, greatest within the lung apices. A thick-walled area of cavitary change in the right upper lobe has decreased in size and wall thickness when compared to prior currently measures 4.3 x 1.2 cm compared to 7.0 x 2.3 cm. There is adjacent scarring. There is a new small right-sided pleural effusion dependently with fluid extending from base to apex. There is some adjacent consolidation in the right lower lobe adjacent to the effusion, new. There is a stable smaller left-sided pleural effusion with left basilar atelectasis. HEART and MEDIASTINUM:Bilateral thyroid nodules, one of the larger is on the left and measures 1.5 cm. Moderate atherosclerotic disease in the thoracic aorta which is nonaneurysmal. Mild coronary artery calcifications. Subcentimeter mediastinal nodes without adenopathy. ABDOMEN:Limited images of the upper abdomen demonstrate bilateral stable lipid rich adenomas. The kidneys are atrophic, particularly the left. BONES and SOFT TISSUES:Degenerative changes in the spine. Old left-sided rib fractures. IMPRESSION: 1.Advanced destructive centrilobular emphysema. 2.Interval decrease in size and wall thickness of right upper lobe cavitary change. Presumably was superinfected on prior. Attention on follow-ups. 3.New small right-sided pleural effusion. Adjacent right basilar consolidation may represent atelectasis. Some mild pneumonia is not excluded. 4.Stable small left-sided pleural effusion with left basilar atelectasis. 5.Thyroid nodules. Follow-up thyroid ultrasound can be obtained. 6.Additional findings as above [id number] Procedure Note Hm Interface, Radiology Results Incoming - 01/13/2019 6:37 PM FRONT LOADER RESIDENTIAL DRIVER EXAMINATION: CT CHEST WO CONTRAST CLINICAL HISTORY: COPD exacerbation complicated COMPARISON: 01/26/2018 TECHNIQUE: CT of the chest without intravenous contrast. Absence of contrast decreases sensitivity for detection of focal lesions and vascular pathology. CT imaging was performed with iterative reconstruction techniques and/or automated exposure control to reduce radiation dose. FINDINGS: LUNGS and PLEURA: There are advanced destructive centrilobular emphysematous changes, greatest within the lung apices. A thick-walled area of cavitary change in the right upper lobe has decreased in size and wall thickness when compared to prior currently measures 4.3 x 1.2 cm compared to 7.0 x 2.3 cm. There is adjacent scarring. There is a new small right-sided pleural effusion dependently with fluid extending from base to apex. There is some adjacent consolidation in the right lower lobe adjacent to the effusion, new. There is a stable smaller left-sided pleural effusion with left basilar atelectasis. HEART and MEDIASTINUM: Bilateral thyroid nodules, one of the larger is on the left and measures 1.5 cm. Moderate atherosclerotic disease in the thoracic aorta which is nonaneurysmal. Mild coronary artery calcifications. Subcentimeter mediastinal nodes without adenopathy. ABDOMEN: Limited images of the upper abdomen demonstrate bilateral stable lipid rich adenomas. The kidneys are atrophic, particularly the left. BONES and SOFT TISSUES: Degenerative changes in the spine. Old left-sided rib fractures. IMPRESSION: 1. Advanced destructive centrilobular emphysema. 2. Interval decrease in size and wall thickness of right upper lobe cavitary change. Presumably was superinfected on prior. Attention on follow-ups. 3. New small right-sided pleural effusion. Adjacent right basilar consolidation may represent atelectasis. Some mild pneumonia is not excluded. 4. Stable small left-sided pleural effusion with left basilar atelectasis. 5. Thyroid nodules. Follow-up thyroid ultrasound can be obtained. 6. Additional findings as above [id number] Performing Organization Address City/State/Zipcode Phone Number [facility] [address] [place] [address] * Hepatitis B surface antigen (01/13/2019 1:46 PM [employer] RESIDENTIAL DRIVER) Hepatitis B Non-reactive Non-reactive ORANGE surface Ag [facility] Specimen Blood Performing Organization Address City/State/Zipcode Phone Number [facility] [address] [place] [address] PATHOLOGY AND GENOMIC MEDICINE [address] * XR Chest 2 Vw (01/12/2019 7:08 PM [employer] RESIDENTIAL DRIVER) Specimen Narrative Performed At EXAMINATION:XR CHEST 2 VW [facility] CLINICAL HISTORY: Shortness of breath COMPARISON:Chest x-ray and CT from 01/26/2018 IMPRESSION: Lungs are emphysematous. There is parenchymal infiltrate in the left mid and lower lung zone, much of which was present on prior study. Some irregular parenchymal infiltrate also noted in the right lung which appears slightly more confluent in the suprahilar region, similar to prior exam. Correlation with CT can be obtained to better evaluate for interval change. Cardiomediastinal silhouette is stable. There is no pneumothorax or significant effusion. Visualized osseous structures are intact. [facility]-[id number] Procedure Note Interface, Radiology Results Incoming - 01/12/2019 7:16 PM [employer] RESIDENTIAL DRIVER EXAMINATION: XR CHEST 2 VW CLINICAL HISTORY: Shortness of breath COMPARISON: Chest x-ray and CT from 01/26/2018 IMPRESSION: Lungs are emphysematous. There is parenchymal infiltrate in the left mid and lower lung zone, much of which was present on prior study. Some irregular parenchymal infiltrate also noted in the right lung which appears slightly more confluent in the suprahilar region, similar to prior exam. Correlation with CT can be obtained to better evaluate for interval change. Cardiomediastinal silhouette is stable. There is no pneumothorax or significant effusion. Visualized osseous structures are intact. [facility]-[id number] Performing Organization Address City/State/Zipcode Phone Number [facility] [address] [place] [address] * Bone Density (06/03/2018 11:48 AM CDT) Specimen Narrative Performed At EXAMINATION:BONE DENSITY [facility] CLINICAL HISTORY:Evaluation for osteoporosis. COMPARISON:None. The results of this study expressed as bone mineral density (BMD) were as follows: AP spine (L1-L4) BMD: 1.46 g/cm2 T-Score: 2.3 Dual Femur (Total Mean): BMD: 1.01 g/cm2 T-Score: - 0.0 Dual femur FRAX: Risk factors: Current smoker Impression: 1. Bone mineral density values as above. A copy of this scans including a report detailing these results will follow. Note: The world health organization (WHO) has classified the patient's T-score as follows: Above (-1) as normal (-1) to (-2.5) as low (osteopenia) Below (-2.5) as abnormally low (osteoporosis, increased fracture risk) [facility]-[id number] Procedure Note Interface, Radiology Results Incoming - 06/03/2018 2:15 PM CDT EXAMINATION: BONE DENSITY CLINICAL HISTORY: Evaluation for osteoporosis. COMPARISON: None. The results of this study expressed as bone mineral density (BMD) were as follows: AP spine (L1-L4) BMD: 1.46 g/cm2 T-Score: 2.3 Dual Femur (Total Mean): BMD: 1.01 g/cm2 T-Score: - 0.0 Dual femur FRAX: Risk factors: Current smoker Impression: 1. Bone mineral density values as above. A copy of this scans including a report detailing these results will follow. Note: The world health organization (WHO) has classified the patient's T-score as follows: Above (-1) as normal (-1) to (-2.5) as low (osteopenia) Below (-2.5) as abnormally low (osteoporosis, increased fracture risk) [id number] Performing Organization Address City/State/Zipcode Phone Number [facility] [address] [place] [address] after 05/17/2018 Insurance Type Payer Benefit Subscriber ID Effective Phone Address Plan / Dates Group HMO [employer] xxxxxxxxx [id number] JONO resent Advance Directives Patient has advance care planning documents, and code status on file. For more i nformation, please contact: Darren Deshpande [address] [place] [address] Date Inactivated Comments Code Status Date Activated 02/04/2018 9:35 PM DNR 01/28/2018 5:24 PM Code Status decision reached by: Patient 11/15/2017 12:42 AM Full Code 11/14/2017 3:56 AM Code Status decision reached by: Patient Code Status decision reached by: Patient
--- NOTE | 2019-05-18 20:08 | Diagnostic Imaging Report ---
EXAMINATION: CHEST SINGLE (NOT PORTABLE) INDICATION: Shortness of breath COMPARISON: None FINDINGS: AP view TUBES and LINES: None. LUNGS: Lungs are well inflated. There are bibasilar atelectasis. There is perihilar interstitial opacities, consistent with interstitial edema. PLEURA: Moderate right pleural effusion. Small left pleural effusion. HEART AND MEDIASTINUM: The cardiomediastinal silhouette is unremarkable. BONES AND SOFT TISSUES: No acute osseous lesion. Soft tissues are unremarkable. UPPER ABDOMEN: No free air under the diaphragm. IMPRESSION: Moderate right and small left pleural effusions with mild interstitial edema. Signed by: Dr. Bakari Mena M.D. on 05/18/2019 8:05 PM
[2019-05-18 21:08] LABS: BASOPHILS % 0.1 % (0.0-1.0); EOSINOPHILS # (AUTO) 0.4 (0.0-0.4); EOSINOPHILS % 5.9 % (0.0-6.0); HEMATOCRIT 27.9 % (34.2-44.1); HEMOGLOBIN 8.9 g/dL (12.0-16.0); LYMPHOCYTES # (AUTO) 2.4 (1.0-3.2); LYMPHOCYTES % 33.4 % (18.0-39.1); MEAN CORPUSCULAR HEMOGLOBIN 29.8 pg (28-32); MEAN CORPUSCULAR HGB CONC 31.9 g/dL (31-35); MEAN CORPUSCULAR VOLUME 93.3 fL (81-99); MONOCYTES # (AUTO) 0.5 (0.2-0.8); MONOCYTES % 6.4 % (4.4-11.3); NEUTROPHILS # (AUTO) 3.8 (2.1-6.9); NEUTROPHILS % 53.6 % (38.7-80.0); PLATELET COUNT 279 x10e3/uL (140-360); RED BLOOD COUNT 2.99 x10e6/uL (3.6-5.1); RED CELL DISTRIBUTION WIDTH 14.5 % (11.7-14.4)
[2019-05-18 21:20] LABS: ALBUMIN 2.4 g/dL (3.5-5.0); ALBUMIN/GLOBULIN RATIO 0.7 (0.8-2.0); ANION GAP 11.1 mmol/L (8-16); CALCIUM 8.3 mg/dL (8.4-10.2); CREATININE, SERUM 4.06 mg/dL (0.57-1.11); POTASSIUM 3.1 mmol/L (3.5-5.1)
[2019-05-18 21:27] LABS: CREATINE KINASE MB 1.8 ng/mL (0-5.0)
--- NOTE | 2019-05-18 21:37 | NUR ---
[facility] - DIALYSIS NURSE [phone] - PLEASE CALL WITH ROOM NUMBER FOR DIALYSIS
[2019-05-18] MEDS ORDERED: ONDANSETRON HCL INJ 2MG/ML 2ML 2 MG/ML VIAL IV PRN (22:00)
[2019-05-18] MEDS ORDERED: SODIUM CHLORIDE FLUSH 10 ML SYR INJ PRN (22:00)
[2019-05-18] MEDS ORDERED: CARVEDILOL6.25 MG PO (22:01)
[2019-05-18] MEDS ORDERED: ESCITALOPRAM OX20 MG PO (22:01)
[2019-05-18] MEDS ORDERED: CLOPIDOGREL75 MG PO (22:01)
[2019-05-18] MEDS ORDERED: AMLODIPINE BESY10 MG PO (22:01)
[2019-05-18] MEDS ORDERED: ESCITALOPRAM OX10 MG PO (22:01)
[2019-05-18] MEDS ORDERED: ULTRAM 50MG50 MG PO (22:01)
[2019-05-18] MEDS ORDERED: LACTULOSE10 GM/151 PO (22:01)
[2019-05-18] MEDS ORDERED: FUROSEMIDE40 MG PO (22:01)
[2019-05-18] MEDS ORDERED: PREDNISONE10 MG PO (22:01)
[2019-05-18] MEDS ORDERED: TIZANIDINE HCL2 MG PO (22:01)
[2019-05-18] MEDS ORDERED: HYDRALAZINE HCL10 MG PO (22:01)
--- OUTSIDE RECORDS SUMMARY | 2019-05-18 22:05 | XMS REPORT | Clinical Summary ---
Author Author [facility] Organization [facility] Address Unknown Phone Unavailable Care Team Providers Care Beater Boss Name Role Phone Lorne Whitfield MD PCP [...] 8 Coronary artery disease by mouth of [place] artery of daily. [place] heart with stable angina pectoris ([facility]) Active carvedilol (COREG) 6.25 6.25 mg 2 [...] complication, with long-term current use of insulin ([facility]) 06/27/2019 Active tiZANidine (ZANAFLEX) 2 Take 1 [...] mg 8 solutionIndications: COPD total) by exacerbation ([facility]) nebulization 4 (four) times a day for [...] complication, with long-term current use of insulin ([facility]) 02/24/2019 flash glucose sensor 1 Device 2 kit 0 (FREESTYLE NIRAJ 14 DAY every 14 9 SENSOR) kitIndications: (fourteen) Type 2 diabetes mellitus days for 30 with other specified days. complication, with long-term current use of insulin ([facility]) 04/25/2019 varenicline (CHANTIX) 0.5 Take 1 tablet 90 tablet 0 MG tabletIndications: (0.5 mg 9 Type 2 diabetes mellitus total) by with other specified mouth daily complication, with for 90 days. long-term current use of Take with insulin ([facility]) full glass of water. Status Hospital, Clinic, [...] catheter dysfunction 04/27/2018 Coronary artery disease involving [place] coronary artery of [place] heart 11/19/2017 ESRD (end stage renal disease) [...] MA Essential hypertension 03/29/2019 Refill Family Lorne Holden MD Type 2 diabetes mellitus with other [...] MD COPD exacerbation (HCC) (Primary Dx) 01/12/2019 [facility] Internal Medicine - Encounter 01/14/2019 Lorne Whitfield MD Shortness of breath (Primary Dx); COPD exacerbation (HCC); Acute combined systolic and diastolic congestive heart failure (HCC); Essential hypertension; ESRD (end stage renal disease) (HCC) 01/11/2019 Office Visit Lorne Shannon MD Coronary artery disease of [place] artery of [place] heart with stable angina pectoris (HCC) (Primary Dx); Essential hypertension; Right arm numbness 12/18/2018 Office Visit Lorne Shannon MD Essential hypertension 12/04/2018 Orders Only Lorne Shannon MD COPD exacerbation (HCC) (Primary Dx); Essential hypertension 10/29/2018 Office Visit Lorne Shannon MD Essential hypertension (Primary Dx); Coronary artery disease of [place] artery of [place] heart with stable angina pectoris (HCC) 09/29/2018 Office Visit Lorne Shannon MD Essential hypertension 09/14/2018 Refill Lorne [...] Lot Implanted Type Area Manufactur er 07/10/2019 [id number] / [id number] Catheter Dialysis Glidepath Implantabl N/A: N/A BARD [id number] Symmetric Tip - e Infusion PERIPHERAL [id number] Ports or VASCULAR Implanted: 01/30/2018 (Quantity not Accessorie on file) s Procedures Comments Procedure Name Priority Date/Time Associated Diagnosis CT ABDOMEN PELVIS WO STAT 05/17/2019 CONTRAST 5:44 PM CDT ESTIMATED GFR STAT 05/17/2019 4:07 PM CDT BASIC METABOLIC PANEL STAT 05/17/2019 4:07 PM CDT HC COMPLETE BLD COUNT STAT 05/17/2019 W/AUTO DIFF 4:07 PM CDT ECG 12-LEAD STAT 05/17/2019 12:12 PM CDT XR ABDOMEN 1 VW Routine 05/14/2019 ESRD (end stage renal 2:33 PM CDT disease) ([facility]) LIPID PANEL WITH REFLEX Routine 05/05/2019 Mixed hyperlipidemia TO DIRECT LDL 4:01 PM CDT HEMOGLOBIN A1C Routine 05/05/2019 Type 2 diabetes mellitus 4:01 PM CDT with other specified complication, with long-term current use of insulin ([facility]) CBC WITH PLATELET AND Routine 05/05/2019 Type 2 diabetes mellitus DIFFERENTIAL 4:01 PM CDT with other specified complication, with long-term current use of insulin ([facility]) COMPREHENSIVE METABOLIC Routine 05/05/2019 ESRD (end stage renal PANEL 4:01 PM CDT disease) ([facility]) URINE PROTEIN/CREATININE Routine 05/05/2019 ESRD (end stage renal RATIO, RANDOM 4:01 PM CDT disease) ([facility]) PARATHYROID HORMONE Routine 05/05/2019 ESRD (end stage renal 4:01 PM CDT disease) ([facility]) PHOSPHORUS LEVEL Routine 05/05/2019 ESRD (end stage renal 4:01 PM CDT disease) ([facility]) URIC ACID LEVEL Routine 05/05/2019 ESRD (end stage renal 4:01 PM CDT disease) ([facility]) MAGNESIUM LEVEL Routine 05/05/2019 ESRD (end stage renal 4:01 PM CDT disease) ([facility]) JOINT Routine 05/05/2019 Chronic right shoulder ASPIRATION/INJECTION 2:30 PM CDT pain POTASSIUM LEVEL Routine 04/06/2019 7:30 AM CDT POC GLUCOSE Routine 01/14/2019 10:46 AM PETROLEUM ANALYST POC GLUCOSE Routine 01/14/2019 9:09 AM PETROLEUM ANALYST XR CHEST 1 VW PORTABLE Routine 01/14/2019 7:53 AM PETROLEUM ANALYST POC GLUCOSE Routine 01/14/2019 6:02 AM PETROLEUM ANALYST B NATRIURETIC PEPTIDE Routine 01/14/2019 6:00 AM PETROLEUM ANALYST ESTIMATED GFR Routine 01/14/2019 6:00 AM PETROLEUM ANALYST PHOSPHORUS LEVEL Routine 01/14/2019 6:00 AM PETROLEUM ANALYST MAGNESIUM LEVEL Routine 01/14/2019 6:00 AM PETROLEUM ANALYST HC COMPLETE BLD COUNT Routine 01/14/2019 W/AUTO DIFF 6:00 AM PETROLEUM ANALYST BASIC METABOLIC PANEL Routine 01/14/2019 6:00 AM PETROLEUM ANALYST POC GLUCOSE Routine 01/14/2019 5:36 AM PETROLEUM ANALYST POC GLUCOSE Routine 01/14/2019 5:34 AM PETROLEUM ANALYST POC GLUCOSE Routine 01/13/2019 8:[address] CHEST WO CONTRAST Routine 01/13/2019 5:34 PM PETROLEUM ANALYST POC GLUCOSE Routine 01/13/2019 4:02 PM PETROLEUM ANALYST HEPATITIS B SURFACE STAT 01/13/2019 ANTIGEN 1:46 PM PETROLEUM ANALYST POC GLUCOSE Routine 01/13/2019 11:36 AM PETROLEUM ANALYST POC GLUCOSE Routine 01/13/2019 5:43 AM PETROLEUM ANALYST ESTIMATED GFR Routine 01/12/2019 8:42 PM PETROLEUM ANALYST BASIC METABOLIC PANEL Routine 01/12/2019 8:42 PM PETROLEUM ANALYST HC COMPLETE BLD COUNT Routine 01/12/2019 W/AUTO DIFF 8:42 PM PETROLEUM ANALYST POC GLUCOSE Routine 01/12/2019 8:18 PM PETROLEUM ANALYST XR CHEST 2 VW Routine 01/12/2019 7:08 PM PETROLEUM ANALYST BONE DENSITY Routine 06/03/2018 Postmenopausal state 11:48 [...] loculated pleural effusions, are as noted above. [facility]-[id number] Procedure Note Interface, Radiology Results Incoming - [...] loculated pleural effusions, are as noted above. [facility]-[id number] Performing Organization Address City/State/Zipcode Phone Number [facility] [address] [place] [address] * Estimated GFR (05/17/2019 4:07 PM CDT) Only the most recent of 3 results within the time period is included. Estimated GFR 11 (A) mL/min/1.73 m2 [place] Comment: CAODAISM [facility] G1 >=90 Normal or high G2 60-89Mildly decreased [id number] Mildly to moderately decreased [id number] Moderately to severely decreased G4 15-29Severely decreased G5 <15Kidney failure The eGFR was calculated using the Chronic Kidney Disease Epidemiology Collaboration (CKD-EPI) equation. Interpretation is based on recommendations of the National Kidney Foundation-Kidney Disease Outcomes Quality Initiative (NKF-KDOQI) published in 2014. Specimen Plasma specimen Performing Organization Address City/State/Zipcode Phone Number [facility] [address] [place] [address] PATHOLOGY AND GENOMIC MEDICINE [facility] [address] * CBC with platelet and differential (05/17/2019 4:07 PM CDT) Only the most recent of 4 results within the time period is included. WBC 8.6 4.2 - 11.0 k/uL [facility] RBC 3.28 (L) 4.04 - 5.86 m/uL [facility] HGB 9.6 (L) 11.5 - 15.3 g/dL [facility] HCT 31.1 (L) 34.0 - 45.0 % [facility] MCV 94.8 80.0 - 98.0 fL [facility] MCH 29.3 27.0 - 34.0 pg [facility] MCHC 30.9 (L) 31.5 - 36.5 g/dL [facility] RDW - SD 50.0 37.0 - 51.0 fL [facility] MPV 10.0 7.4 - 10.4 fL [facility] Platelet count 299 150 - 400 k/uL [facility] Nucleated RBC 0.00 /100 WBC [facility] Neutrophils 61.7 36.0 - 66.0 % [facility] Lymphocytes 26.0 24.0 - 44.0 % [facility] Monocytes 6.4 (H) 0.0 - 6.0 % [facility] Eosinophils 4.8 0.0 - 6.0 % [facility] Basophils 0.3 0.0 - 1.2 % [facility] Immature 0.8 0.0 - 1.0 % [place] granulocytes [facility] Specimen Blood Performing Organization Address City/State/Zipcode Phone Number [facility] [address] [place] [place] [phone] PATHOLOGY AND GENOMIC MEDICINE [facility] [address] [place] [address] * Basic metabolic panel (05/17/2019 4:07 PM CDT) Only the most recent of 3 results within the time period is included. Sodium 143 135 - 150 mEq/L [facility] Potassium 3.6 3.5 - 5.0 mEq/L [facility] Chloride 104 98 - 112 mEq/L [facility] CO2 28 24 - 31 mmol/L [facility] Anion gap 11@ANIO 7 - 15 mEq/L [facility] BUN 29 (H) 7 - 18 mg/dL [facility] Creatinine 4.00 (H) 0.50 - 0.90 mg/dL [facility] Glucose 144 (H) 65 - 100 mg/dL [facility] Calcium 9.0 8.8 - 10.2 mg/dL [facility] Specimen Plasma specimen Performing Organization Address City/[facility] Phone Number [facility] [address] [place] [address] PATHOLOGY AND GENOMIC MEDICINE [address] * ECG 12 lead (05/17/2019 12:12 PM CDT) Ventricular 91 [facility] rate Atrial rate 91 [facility] NC interval 156 [facility] QRSD interval 84 [facility] QT interval 390 [facility] QTC interval 479 [facility] P axis 1 51 [facility] QRS axis 1 34 [facility] T wave axis 48 [facility] EKG impression Normal sinus rhythm-Normal [facility] MUSE ECG-In automated comparison with ECG of 27-APR-2018 17:23,-No significant change was found- Specimen Narrative Performed At Performing Organization Address City/[facility]/Zipcode Phone Number [facility] MUSE [address] [place] [address] * XR Abdomen 1 Vw (05/14/2019 2:33 [...] pelvis most likely representing peritoneal dialysis catheter. [id number] Procedure Note Hm Interface, Radiology Results Incoming - 05/14/2019 2:41 [...] pelvis most likely representing peritoneal dialysis catheter. [id number] Performing Organization Address City/[facility]/Zipcode Phone Number [facility] [address] [place] [address] * LIPID PANEL WITH REFLEX TO DIRECT LDL (05/05/2019 4:01 PM CDT) Cholesterol, 220 (H) <200 mg/dL [facility] total DIAG[facility]ICS [place] HDL cholesterol 39 (L) >50 mg/dL [facility] [place] Triglycerides 158 (H) <150 mg/dL [facility] [place] LDL cholesterol 152 (H) mg/dL (calc) [facility] calculated Comment: DIAGNOSTICS Reference range: <100 [place] Desirable range <100 mg/dL for primary prevention; <70 mg/dL for patients with CHD or diabetic patients with > or=2 CHD risk factors. LDL-C is now calculated using the Minerva calculation, which is a validated novel method providing better accuracy than the Friedewald equation in the estimation of LDL-C. Ángel IYER et al. LARRY. 2013;310(19): 0498-6035 (http://education.Traddr.com.[employer]/faq/TZN968) Cholesterol/HDL 5.6 (H) <5.0 (calc) [facility] ratio [facility] [place] Non-HDL 181 (H) <130 mg/dL (calc) [facility] cholesterol Comment: DIAGNOSTICS For patients with diabetes [place] plus 1 major ASCVD risk factor, treating to a non-HDL-C goal of <100 mg/dL (LDL-C of <70 mg/dL) is considered a therapeutic option. Specimen Narrative Performed At FASTING:NO [facility] FASTING: NO Resulting Agency Comment Performing Organization Information: Site ID: [id number] Name: [facility] Address: [address] [place] [phone] Director: Rocío Salas Performing Organization Address City/[facility] Hospitalcode [email or web address] [address] * Urine protein/creatinine ratio, random (05/05/2019 4:01 PM CDT) Creatinine, 140 20 - 275 mg/dL [facility] urine, random [facility] [place] Prot/creat 3,857 (H) 21 - 161 mg/g creat [facility] ratio, urine [facility] [place] Protein, urine 540 (H) 5 - 24 mg/dL [facility] random Comment: DIAGNOSTICS Results verified by repeat [place] analysis on dilution. Specimen Urine Narrative Performed At FASTING:NO [facility] FASTING: NO Resulting Agency Comment Performing Organization Information: Site ID: [id number] Name: [facility] Address: [address] [place] [phone] Director: Rocío Salas Performing Organization Address [facility] Hospitalcoor [email or web address] [address] * Uric acid level (05/05/2019 4:01 PM CDT) Uric acid 9.1 (H) 2.5 - 7.0 mg/dL [facility] Comment: DIAGNOSTICS Therapeutic target for gout [place] patients: <6.0 mg/dL Specimen Blood Narrative Performed At FASTING:NO [facility] FASTING: NO Resulting Agency Comment Performing Organization Information: Site ID: [id number] Name: [facility] Address: [address] [place] [phone] Director: Rocío Salas Performing Organization Address [facility] Phone Number [email or web address] [address] [address] * Phosphorus level (05/05/2019 4:01 PM CDT) Only the most recent of 2 results within the time period is included. Phosphorus 6.5 (H) 2.1 - 4.3 mg/dL [facility] [employer] [place] Specimen Blood Narrative Performed At FASTING:NO [facility] FASTING: NO Resulting Agency Comment Performing Organization Information: Site ID: [id number] Name: [facility] Address: [address] [place] [phone] Director: Rocío Salas Performing Organization Address [facility] Phone Number [email or web address] [address] [address] * Parathyroid hormone (05/05/2019 4:01 PM [...] Performing Organization Information: Site ID: [id number] Name: [facility] Address: [address] [place] [address] Director: Dr. Dewayne Nguyen Performing Organization Address [facility]code Phone Number [email or web address] [address] [facility] [place] [place] [address] II * Magnesium level (05/05/2019 4:01 PM CDT) Only the most recent of 2 results within the time period is included. Magnesium 1.2 (L) 1.5 - 2.5 mg/dL [facility] [employer] [place] Specimen Blood Narrative Performed At FASTING:NO [facility] FASTING: NO Resulting Agency Comment Performing Organization Information: Site ID: [id number] Name: [facility] Address: [address] [place] [phone] Director: Rocío Salas Performing Organization Address [facility]/Zipcode [place] [address] * Hemoglobin A1c (05/05/2019 4:01 PM CDT) Hemoglobin A1C 8.3 (H) <5.7 % of total Hgb [facility] Comment: DIAGNOSTICS For someone without known [place] diabetes, a hemoglobin A1c value of 6.5% [...] Agency Comment Performing Organization Information: Site ID: [id number] Name: [facility] Address: [address] [place] [phone] Director: Rocío Salas Performing Organization Address [facility]/Zipcode [place] [address] * Comprehensive metabolic panel (05/05/2019 4:01 PM CDT) Glucose 203 (H) 65 - 139 mg/dL [facility] Comment: DIAGNOSTICS Non-fasting [place] reference interval BUN, whole 41 (H) 7 - 25 mg/dL [facility] blood [facility] [place] Creatinine 4.68 (H) 0.50 - 0.99 mg/dL [facility] Comment: DIAGNOSTICS For patients >49 years of age, [place] the reference limit for Creatinine is approximately 13% higher for people identified as -Latvian. EGFR Non-Afr. 9 (L) > OR=60 [facility] Latvian mL/min/1.73m2 [facility] EGFR 10 (L) > OR=60 [facility] Latvian mL/min/1.73m2 [facility] [place] BUN/creatinine 9 6 - 22 (calc) [facility] ratio [facility] [place] Sodium 137 135 - 146 mmol/L [facility] [place] Potassium 3.3 (L) 3.5 - 5.3 mmol/L [facility] [place] Chloride 99 98 - 110 mmol/L [facility] [place] CO2 27 20 - 32 mmol/L [facility] [place] Calcium 7.4 (L) 8.6 - 10.4 mg/dL [facility] [place] Protein 5.6 (L) 6.1 - 8.1 g/dL [facility] [place] Albumin, S 3.0 (L) 3.6 - 5.1 g/dL [facility] [place] Globulin, total 2.6 1.9 - 3.7 g/dL [facility] (calc) [facility] [place] Albumin/globuli 1.2 1.0 - 2.5 (calc) [facility] n ratio [facility] [place] Total bilirubin 0.3 0.2 - 1.2 mg/dL [facility] [place] Alkaline 123 33 - 130 U/L [employer] phosphatase [facility] [place] AST 9 (L) 10 - 35 U/L [facility] [place] ALT 6 6 - 29 U/L [facility] DIAGNOSTICS [place] Specimen Blood Narrative Performed At FASTING:NO [facility] FASTING: NO Resulting Agency Comment Performing Organization Information: Site ID: RGA Name: [facility] Address: [address] [place] [phone] Director: Rocío Salas Performing Organization Address City/State/[facility] [email or web address] [address] * Arthrocentesis: shoulder, right (05/05/2019 2:30 PM [...] * Potassium level (04/06/2019 7:30 AM CDT) Potassium 2.8 (LL) 3.5 - 5.0 mEq/L [facility] [place] Specimen Plasma specimen Performing Organization Address City/State/[facility]code Phone Number [facility] [address] [facility] [place] [address] PATHOLOGY AND GENOMIC MEDICINE [facility] [address] [facility]. [address] * POC glucose (01/14/2019 10:46 AM PETROLEUM ANALYST) Only the most recent of 10 results within the time period is included. POC glucose 195 (H) 65 - 100 mg/dL [place] Comment: CAODAISM [facility] Meter ID: [id number] [facility] Slitting Machine Operator: [facility] Specimen Performing Organization Address [facility]code Phone Number [facility] [address] [facility] [place] [address] PATHOLOGY AND GENOMIC MEDICINE [address] * XR Chest 1 Vw Portable (01/14/2019 7:53 AM PETROLEUM ANALYST) Specimen Narrative Performed At EXAMINATION:XR CHEST 1 VW PORTABLE [facility] CLINICAL HISTORY:CAD riskhighasymptomatic COMPARISON:01/12/2019 IMPRESSION: Marked upper lung predominant pulmonary emphysema. Peripheral scarring in the right upper lobe with cavitation is better depicted on recent CT. No new airspace disease is noted. Lung bases demonstrate mild congestion, atelectasis, along with small pleural effusions. Normal cardiomediastinal silhouette. No pneumothorax. [facility]-[id number] Procedure Note Interface, Radiology Results Incoming - 01/14/2019 7:59 AM PETROLEUM ANALYST EXAMINATION: XR CHEST 1 VW PORTABLE CLINICAL HISTORY: CAD risk high asymptomatic COMPARISON: 01/12/2019 IMPRESSION: Marked upper lung predominant pulmonary emphysema. Peripheral scarring in the right upper lobe with cavitation is better depicted on recent CT. No new airspace disease is noted. Lung bases demonstrate mild congestion, atelectasis, along with small pleural effusions. Normal cardiomediastinal silhouette. No pneumothorax. [facility]-[id number] Performing Organization Address [facility]code Phone Number [facility] [address] [place] [address] * B natriuretic peptide (01/14/2019 6:00 AM PETROLEUM ANALYST) BNP 828 (H) 0 - 100 pg/mL [facility] [place] Specimen Blood Performing Organization Address City/[facility]/Zipcode Phone Number [facility] [address] [place] [address] PATHOLOGY AND GENOMIC MEDICINE [facility] [address] [place] [address] [facility] * CT Chest Wo Contrast (01/13/2019 5:34 PM PETROLEUM ANALYST) Specimen Narrative Performed At EXAMINATION:CT CHEST WO CONTRAST [facility] CLINICAL HISTORY:COPD exacerbationcomplicated COMPARISON:01/26/2018 TECHNIQUE:CT of the [...] can be obtained. 6.Additional findings as above [id number] Procedure Note Interface, Radiology Results Incoming - 01/13/2019 6:37 PM PETROLEUM ANALYST EXAMINATION: CT CHEST WO CONTRAST CLINICAL HISTORY: [...] be obtained. 6. Additional findings as above [id number] Performing Organization Address City/State/Zipcode Phone Number [facility] [address] [place] [address] * Hepatitis B surface antigen (01/13/2019 1:46 PM PETROLEUM ANALYST) Hepatitis B Non-reactive Non-reactive [facility] surface Ag [facility] Specimen Blood Performing Organization Address City/State/Zipcode Phone Number [address] [place] [address] PATHOLOGY AND GENOMIC MEDICINE [facility] [address] [place] [address] [facility] * XR Chest 2 Vw (01/12/2019 7:08 PM PETROLEUM ANALYST) Specimen Narrative Performed At EXAMINATION:XR CHEST 2 VW [facility] CLINICAL HISTORY: Shortness of breath COMPARISON:Chest x-ray [...] significant effusion. Visualized osseous structures are intact. [facility]-[id number] Procedure Note Interface, Radiology Results Incoming - 01/12/2019 7:16 PM PETROLEUM ANALYST EXAMINATION: XR CHEST 2 VW CLINICAL HISTORY: [...] significant effusion. Visualized osseous structures are intact. [facility]-[id number] Performing Organization Address City/State/Zipcode Phone Number [facility] [address] [place] [address] * Bone Density (06/03/2018 11:48 AM CDT) Specimen Narrative Performed At EXAMINATION:BONE DENSITY [facility] CLINICAL HISTORY:Evaluation for osteoporosis. COMPARISON:None. The results [...] as abnormally low (osteoporosis, increased fracture risk) [id number] Procedure Note Hm Interface, Radiology Results Incoming - 06/03/2018 2:15 [...] as abnormally low (osteoporosis, increased fracture risk) [id number] Performing Organization Address City/State/Zipcode Phone Number [facility] [address] [place] [address] after 05/17/2018 Insurance Type Payer Benefit Subscriber ID Effective Phone Address Plan / Dates Group O [employer]US TEX[employer]US xxxxxxxxx [id number] JONO resent Advance Directives Patient has advance care planning documents, and code status on file. For more i nformation, please contact: Darren Deshpande [address] [place] [address] Date Inactivated Comments Code Status Date Activated 02/04/2018 9:35 PM DNR 01/28/2018 5:24 PM Code Status decision reached by: Patient 11/15/2017 12:42 AM Full Code 11/14/2017 3:56 AM Code Status decision reached by: Patient Code Status decision reached by: Patient
--- OUTSIDE RECORDS SUMMARY | 2019-05-18 22:07 | XMS REPORT ---
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 Allergies, Adverse Reactions, Alerts This patient has no known allergies or adverse reactions. Medications This patient has no known medications. Results Test Description Test Time Test Comments Text Results Atomic Results Result Comments CHEST SINGLE (NOT PORTABLE) 2019-05-18 20:04:00 [place] [address] Patient Name: SRINIVASAN SETHI MR #: [id number] : 1950 Age/Sex: 68/F Req #: [id number] Adm Physician: Ordered by: AXEL ERAZO MD Report #: [id number] Location: ER Room/Bed: Procedure: [id number] DX/CHEST SINGLE (NOT PORTABLE) Exam Date: 05/18/19 Exam Time: 1950 REPORT STATUS: Signed EXAMINATION: CHEST SINGLE (NOT PORTABLE) INDICATION: Shortness of breath COMPARISON: None FINDINGS: AP view TUBES and LINES: None. LUNGS: Lungs are well inflated. There are bibasilar atelectasis. There is perihilar interstitial opacities, consistent with interstitial edema. PLEURA: Moderate right pleural effusion. Small left pleural effusion. HEART AND MEDIASTINUM: The car diomediastinal silhouette is unremarkable. BONES AND SOFT TISSUES: No acute osseous lesion. Soft tissues are unremarkable. UPPER ABDOMEN: No free air under the diaphragm. IMPRESSION: Moderate right and small left pleural effusions with mild interstitial edema. Signed by: Dr. Loreto Mena M.D. on 05/18/2019 8:05 PM Dictated By: LORETO MENA MD 04 Transcribed By: KAREY on 05/18/192004 COPY TO: AXEL ERAZO MD
--- NOTE | 2019-05-18 22:39 | NUR ---
CALLED AND LEFT VOICE-MAIL FOR [facility]; DIALYSIS NURSE. RM 202 ASSIGNED FOR THIS PT
--- NOTE | 2019-05-18 22:52 | NUR ---
PT ARRIVED TO ROOM 202 AT THIS TIME. PT RESTING COMFORTABLY IN BED AT THIS TIME. CALL LIGHT IS IN REACH.
[2019-05-18 22:58] VITALS: BP 163/75
--- NOTE | 2019-05-18 23:06 | NUR ---
SPOKE WITH THE DIALYISIS VÍCTOR HOANG FOR THIS PT AND HE'S ON HIS [phone]
[2019-05-19 04:00] VITALS: BP 168/79
[2019-05-19 05:10] LABS: BASOPHILS % 0.3 % (0.0-1.0); EOSINOPHILS # (AUTO) 0.5 (0.0-0.4); EOSINOPHILS % 6.8 % (0.0-6.0); HEMATOCRIT 27.9 % (34.2-44.1); HEMOGLOBIN 8.6 g/dL (12.0-16.0); LYMPHOCYTES # (AUTO) 1.9 (1.0-3.2); LYMPHOCYTES % 27.1 % (18.0-39.1); MEAN CORPUSCULAR HEMOGLOBIN 28.9 pg (28-32); MEAN CORPUSCULAR HGB CONC 30.8 g/dL (31-35); MEAN CORPUSCULAR VOLUME 93.6 fL (81-99); MONOCYTES # (AUTO) 0.5 (0.2-0.8); MONOCYTES % 7.4 % (4.4-11.3); NEUTROPHILS % 58.1 % (38.7-80.0); PLATELET COUNT 277 x10e3/uL (140-360); RED BLOOD COUNT 2.98 x10e6/uL (3.6-5.1); RED CELL DISTRIBUTION WIDTH 14.6 % (11.7-14.4)
[2019-05-19 05:26] LABS: ALBUMIN 2.3 g/dL (3.5-5.0); ALBUMIN/GLOBULIN RATIO 0.7 (0.8-2.0); CALCIUM 8.3 mg/dL (8.4-10.2); CREATININE, SERUM 3.94 mg/dL (0.57-1.11)
--- NOTE | 2019-05-19 07:02 | NUR ---
REPORT GIVEN TO VÍCTOR MAURICIO AT THIS TIME.
--- NOTE | 2019-05-19 07:18 | NUR ---
Dr. Woods called at this time and made aware of patients potassium level at 3.0. No new orders received at this time.
[2019-05-19] MEDS ORDERED: tresiba (07:25)
[2019-05-19] MEDS ORDERED: novolog (07:30)
[2019-05-19 07:49] VITALS: BP 168/76
--- NOTE | 2019-05-19 08:00 | NUR ---
Received patient this morning, report from out going nurse serum glucose in the 300's, and hypokalemic, she called attending and reported but no orders at this time, FS 322 and calling at this time for medication reconciliation and orders for blood sugars. Will monitor.
[2019-05-19] MEDS ORDERED: AMLODIPINE BESYLATE 10 MG TAB PO ONE (10:30)
[2019-05-19] MEDS ORDERED: HYDRALAZINE HCL 25 MG TAB PO ONE (10:30)
[2019-05-19] MEDS ORDERED: DEXTROSE 50% SYRINGE 50 ML IV PRN (10:30)
--- NOTE | 2019-05-19 10:39 | NUR ---
Patient alert and responsive, no resp distress, in bed and peritoneal dialysis on going, checked by dialysis nurse this morning and will run for 2 more hours. Call to attending and orders in place for ACHS with coverage, and to restarted some home meds. Will monitor.
[2019-05-19] MEDS ORDERED: HYDRALAZINE HCL 10 MG TAB PO SCH ×2 (11:00→17:00)
[2019-05-19] MEDS: INSULIN LISPRO 100 UNIT/1 ML 3ML VIAL SQ SCH ×3 (11:30→20:56)
[2019-05-19 11:36] VITALS: BP 183/88
[2019-05-19 11:54] VITALS: BP 183/88
--- NOTE | 2019-05-19 15:30 | NUR ---
Nutrition Screen Note RD Recommendation for Physician: -Rec ADA 2000 diet as medically appropriate -Rec obtaining stool culture due to reported diarrhea Plan of Care: RD following, monitoring for tolerance and adequacy Nutrition reason for involvement: Diagnosis - ESRD Primary Diagnose(s): abdominal pain, ESRD on PD PMH: DM, ESRD on PD Ht: 69in Wt: 195lb BMI: 28.8kg/m2 IBW: 145lb +/- 10% RD Assessment: (05/19) Chart reviewed. Labs and meds reviewed. 68yo F, who was admitted for abdominal pain. ESRD on PD. BG ~300 this AM, on sliding scale insulin. Visited pt in the room. Pt reported good appetite with 75% observed lunch intake. No complains of nausea or vomiting. Pt complained of diarrhea x3-4 days. Pt denied any chewing or swallowing difficulty. Pt also gained some fluids in the past couple weeks. K is low at 3.0 and no Phos obtained. Pt was told by her renal MD that she didnt need to be on renal diet due to her low potassium level. Communicated RD recommendation with VÍCTOR Engel. Will continue to monitor and follow. Current Diet: Renal diet Malnutrition Evaluation (05/19/2019) The patient does not meet criteria for a specified degree of malnutrition at this time. Will re-evaluate at follow-up as appropriate. Diet Education Needs Assessment: Diet education not indicated. Nutrition Care Level: low Signed: Eve Yanes, MS, RD, LD
[2019-05-19] MEDS ORDERED: POTASSIUM CHLORIDE 20 MEQ TAB CR PO ONE (15:50)
--- NOTE | 2019-05-19 16:03 | NUR ---
Rounds by Dr. Carter and states patient will need dialysis tonight and dialysis center called and notified and they have to call Dr. Carter for orders.
--- NOTE | 2019-05-19 16:05 | NUR ---
[facility] will be completing dialysis for patient tonight.
[2019-05-19 16:12] VITALS: BP 162/68
--- NOTE | 2019-05-19 16:56 | NUR ---
Call to Dr. Carter's service because patient refused potassium supplement ordered due to stomach irritation and diarrhea when ever she takes it. Waiting for call back
[2019-05-19] MEDS ORDERED: HYDRALAZINE HCL 25 MG TAB PO SCH ×2 (17:00→21:00)
[2019-05-19] MEDS: FUROSEMIDE 40 MG TAB PO SCH (17:11)
[2019-05-19] MEDS: HYDRALAZINE HCL 100 MG TABLET PO SCH ×2 (17:12→20:56)
[2019-05-19] MEDS ORDERED: POTASSIUM CHLORIDE 20MEQ/100ML 200 ML IV ONE (17:30)
[2019-05-19] MEDS ORDERED: SODIUM CHLORIDE 0.9% 250ML 250 ML ONE (17:44)
[2019-05-19] MEDS ORDERED: HYDRALAZINE HCL 20 MG/ML VIAL IV PRN (17:45)
[2019-05-19] MEDS ORDERED: FUROSEMIDE INJ 10 MG/ML 4 ML VIAL IV ONE (19:30)
[2019-05-19] MEDS ORDERED: POTASSIUM CHLORIDE 20MEQ/100ML 100 ML IV ONE (20:00)
[2019-05-19] MEDS: ALBUTEROL/IPRATROPIUM 3 ML NEB NEB PRN (20:30)
[2019-05-19 20:39] VITALS: BP 216/97
[2019-05-19] MEDS: HEPARIN SOD (PORCINE) 5,000 UNIT/ML VIAL SC SCH (20:55)
--- NOTE | 2019-05-19 23:41 | Consultation ---
DATE OF CONSULTATION: Renal Consultation Thank you, Dr. Woods for the consultation. HISTORY OF PRESENT ILLNESS: Ms. Chua is a pleasant 68-year-old female with a past medical history significant for end-stage renal disease, on peritoneal dialysis in the outpatient setting. Apparently, the patient has been having difficulty with abdominal pain and also worsening shortness of breath, has not been able to do her PD last few days, came in overnight to [facility] with worsening shortness of breath, abdominal pain. Initial PD fluid does not show any WBCs. Nothing on the Gram stain. PD fluid was also sent to the dialysis clinic, the results are not back yet. The patient was given one dose of IV vancomycin and one dose of IV gentamicin at the dialysis clinic also. Currently, breathing is improved after the patient was placed on 4.25% dextrose bath last night with four exchanges. Currently, no fever, no chills, no nausea, no vomiting, no diarrhea. Shortness of breath is improved. PAST MEDICAL HISTORY: As outlined above. Also history of congestive heart failure. ALLERGIES: TO CODEINE. SOCIAL HISTORY: No tobacco. No alcohol use. FAMILY HISTORY: Noncontributory. REVIEW OF SYSTEMS: See HPI. Otherwise, all systems negative. MEDICATIONS: Reviewed per chart. PHYSICAL EXAMINATION: VITAL SIGNS: Blood pressure is in the 160s to 180s over 80s, 76 pulse, afebrile. HEENT: No cervical lymphadenopathy. NECK: Supple without masses. No obvious JVD. Moist appearing mucosa. SKIN: Moist with good skin turgor. CHEST: Chest wall expansion with good expansion. No chest wall tenderness. LUNGS: Rales bilaterally over lung sebastian. CARDIOVASCULAR: S1, S2. No obvious gallop, rub, or murmur. ABDOMEN: Soft. Positive bowel sounds. Nontender. No organomegaly. EXTREMITIES: Evidence of 2+ edema. No clubbing. No cyanosis. NEUROLOGIC: Awake, alert, and oriented x3. Grossly nonfocal exam. LABS: H and H of 8.6 and 27.9. Sodium 139, potassium 3, chloride 101, bicarb 29, BUN is 26, creatinine is 3.9. BNP is 1114.8. IMPRESSION AND PLAN: 1. End-stage renal disease. We will continue to provide peritoneal dialysis per her orders. We will also do another round of ultrafiltration with 4.25% dextrose bath to allow for more ultrafiltration. Repeat followup chest x-ray tomorrow. The patient at present evidence does not appear to have peritonitis, therefore we will not do any further IV antibiotics, unless cultures or Gram stain or PD fluid cell count from the dialysis clinic come out to suggest peritonitis. 2. Hypertension. We will resume home blood pressure medications. Make further recommendations. Titrate her medications as needed. We will also ultra filter with the peritoneal dialysis which will allow the blood pressure to come down. 3. Anemia of chronic disease, stable. 4. Hypokalemia. We will replace and monitor closely. Thank you once again for the consultation. We will follow the patient closely with you and make further recommendations. MD CYRUS Decker/JOSEL /[id number]
[2019-05-20] VITALS (8 sets, daily range): BP systolic 161–177; BP diastolic 69–76
--- NOTE | 2019-05-20 00:16 | History and Physical ---
CHIEF COMPLAINT: Abdominal pain, concerns for SBP. HISTORY OF PRESENT ILLNESS: 68-year-old female with known history of ESRD, on dialysis and history of hypertension, was sent in by her time study observer due to concerns of underlying peritonitis. The patient was complaining of abdominal pain ongoing for the last 3-4 days at home. She denies any fever. She does not endorse that her peritoneal fluid was cloudy. Denies chest pain, palpitations, nausea, or vomiting. She reported to her time study observer yesterday about abdominal pain and was told to come to the hospital for further evaluation and care. She was given some antibiotics in the dialysis unit prior to come in. The patient was seen and evaluated at bedside on the medical floor. She is currently doing well with no other issues at this time. During my evaluation, she denies any chest pain, no more abdominal pain. She does endorse some shortness of breath and with concerns of underlying pulmonary edema. REVIEW OF SYSTEMS: Pertinent positive: Abdominal pain, shortness of breath. Pertinent negative: Denies any chest pain, palpitation, dysuria, hematuria, frequency, urgency, lightheadedness, dizziness, cough, congestion, fever or any other complaints. The rest of 14-point review of systems have been reviewed with the patient and are negative. ALLERGIES: CODEINE. MEDICATIONS: Prednisone 10 mg a day, tramadol 50 mg t.i.d., carvedilol 6.25 mg b.i.d., amlodipine 10 mg a day, Plavix 75 mg daily, escitalopram 10 mg daily, furosemide 40 mg daily, and hydralazine 10 mg daily. PAST MEDICAL HISTORY: ESRD, on dialysis; hypertension; type 2 diabetes; and depression. PAST SURGICAL HISTORY: Has a peritoneal dialysis catheter. FAMILY HISTORY: Hypertension and diabetes. SOCIAL HISTORY: No drugs. No alcohol. Does not smoke. Good social support. PHYSICAL EXAMINATION: VITAL SIGNS: Temperature is 98.6, pulse 91, respiratory rate is 20, blood pressure 162/68, pulse ox 96% on 3 L nasal cannula. GENERAL: Not in acute distress, alert and oriented x3. Cooperative on exam. HEENT: Head normocephalic and atraumatic. Eyes, pupils are equal, round, and reactive to light bilaterally. Extraocular movements intact bilaterally. Throat, no evidence of erythema or exudates in the posterior pharynx. Has poor dentition. NECK: Supple. Good range of motion. PULMONARY: Decreased breath sounds bilaterally with positive breath, but no evidence of expiratory wheezing. CARDIOVASCULAR: Positive S1 and S2. No murmurs, rubs, or gallops appreciated. ABDOMEN: Soft, nondistended, and nontender to palpation. Bowel sounds present. MUSCULOSKELETAL: Strength is 5/5 throughout. No evidence of any muscle deficits on examination. No weakness appreciated. NEUROLOGICAL: Cranial nerves II through XII grossly intact. No evidence of any neurological deficits on exam. SKIN: Intact. Warm to touch. Good cap refill. PSYCHIATRIC: Normal affect and mood. EXTREMITIES: No edema. Good range of motion throughout. LABORATORY DATA: Lab findings show white count is 6.8, hemoglobin 8.6, hematocrit is 28, and platelets of 277. Chemistry; sodium 139, potassium 3, chloride 101, bicarb 29, anion gap of 12, BUN is 26, creatinine is 3.9, glucose is 320, but that was this morning. Now point of care glucose 91, calcium is 8.3, total bilirubin was 0.3, AST 7, ALT 6, alkaline phosphate 112. BNP 1114. Albumin 2.3. MICROBIOLOGY: Peritoneal fluid shows no organisms, no WBC's. IMAGING STUDIES: Chest x-ray, moderate right and small left pleural effusion with mild interstitial edema. IMPRESSION: 1. Abdominal pain, was concerning for underlying peritonitis. 2. End-stage renal disease, on peritoneal dialysis. 3. Hypertension, well controlled. 4. Type 2 diabetes. 5. Depression. PLAN: At this time, Nephrology was consulted. Peritoneal fluid was found to be negative for any organisms. Does not seem like she needs any IV antibiotics at this time. She is afebrile. She is doing well and her cultures so far are negative and her peritoneal fluid is not cloudy in nature. She also denies any abdominal pain. At this time, PD will be ordered per time study observer. He will work on trying to get increased ultrafiltration. Resume same home antihypertensive medications, but increase hydralazine 100 mg p.o. t.i.d. Her p.r.n. hydralazine arranged as well. The patient is on home O2 at home as well, which we will continue here. Continue with pain control as well. Resume home medications. Insulin sliding scale, Accu-Cheks, A1c. Put her on heparin for DVT prophylaxis. MD KATHY Morrissey/MAK /[id number]
[2019-05-20] MEDS: HYDRALAZINE HCL 100 MG TABLET PO SCH ×3 (05:09→21:39)
[2019-05-20] MEDS: FUROSEMIDE 40 MG TAB PO SCH ×2 (05:09→16:41)
[2019-05-20 05:18] LABS: BASOPHILS % 0.2 % (0.0-1.0); EOSINOPHILS # (AUTO) 0.1 (0.0-0.4); EOSINOPHILS % 0.7 % (0.0-6.0); HEMATOCRIT 29.2 % (34.2-44.1); LYMPHOCYTES # (AUTO) 0.8 (1.0-3.2); LYMPHOCYTES % 8.7 % (18.0-39.1); MEAN CORPUSCULAR HEMOGLOBIN 28.7 pg (28-32); MEAN CORPUSCULAR HGB CONC 30.8 g/dL (31-35); MONOCYTES # (AUTO) 0.8 (0.2-0.8); MONOCYTES % 9.3 % (4.4-11.3); NEUTROPHILS % 80.4 % (38.7-80.0); PLATELET COUNT 280 x10e3/uL (140-360); RED BLOOD COUNT 3.14 x10e6/uL (3.6-5.1); RED CELL DISTRIBUTION WIDTH 14.6 % (11.7-14.4)
[2019-05-20 05:31] LABS: ANION GAP 14.1 mmol/L (8-16); CALCIUM 8.6 mg/dL (8.4-10.2); CREATININE, SERUM 3.75 mg/dL (0.57-1.11); PHOSPHORUS 1.9 MG/DL (2.3-4.7); POTASSIUM 3.1 mmol/L (3.5-5.1)
[2019-05-20 05:40] LABS: MAGNESIUM 1.1 MG/DL (1.3-2.1)
[2019-05-20] MEDS ORDERED: MAGNESIUM SULFATE 2GM/50ML 50 ML IV ONE (06:00)
--- NOTE | 2019-05-20 06:23 | NUR ---
Dr. Carter notified of critical lab value, telephone order received and placed
--- NOTE | 2019-05-20 07:15 | Diagnostic Imaging Report ---
Examination: Single AP view of the chest. COMPARISON: 05/18/2019 INDICATION: Shortness of breath DISCUSSION: Interval improvement in now small bilateral pleural effusions. No new consolidation. Right apical pleural-parenchymal scar unchanged. Stable cardiomediastinal contour with prominence of the pulmonary interstitium. Relative hyperlucencies of the left upper lung may reflect emphysematous changes. No acute osseous abnormality. IMPRESSION: Improved interstitial edema and bilateral pleural effusions relative to 05/18/2019. Signed by: Dr. Brett Villarreal M.D. on 05/20/2019 7:12 AM
[2019-05-20] MEDS: INSULIN LISPRO 100 UNIT/1 ML 3ML VIAL SQ SCH ×4 (07:30→21:27)
[2019-05-20] MEDS: ALBUTEROL/IPRATROPIUM 3 ML NEB NEB PRN ×3 (08:15→19:30)
[2019-05-20] MEDS: POTASSIUM CHLORIDE 20 MEQ TAB CR PO SCH ×2 (08:22→16:41)
[2019-05-20] MEDS: HEPARIN SOD (PORCINE) 5,000 UNIT/ML VIAL SC SCH ×2 (08:22→21:25)
[2019-05-20] MEDS: ESCITALOPRAM OXALATE 10 MG TAB PO SCH (08:22)
[2019-05-20] MEDS: AMLODIPINE BESYLATE 10 MG TAB PO SCH (08:22)
[2019-05-20] MEDS: CLOPIDOGREL BISULFATE 75 MG TAB PO SCH (08:23)
[2019-05-20] MEDS ORDERED: MAGNESIUM SULF 1GRAM/DEXTROSE 100 ML IV ONE (08:45)
[2019-05-20] MEDS ORDERED: FUROSEMIDE 40 MG TAB PO SCH (09:00)
[2019-05-20] MEDS ORDERED: POTASSIUM PHOSPHATE 30 MM in SODIUM CHLORIDE 0.9% 250ML 250 ML IV ONE (10:00)
--- NOTE | 2019-05-20 11:19 | Progress Note ---
DATE: 05/20/2019 Renal Progress Note SUBJECTIVE: Followed for end-stage renal disease, tolerating her peritoneal dialysis without any problems. The patient has not had any abdominal pain. PD fluid is clear. The patient's fluid overload is improved. Chest x-ray this morning shows improvement in interstitial edema. No nausea, no vomiting. Shortness of breath is better. OBJECTIVE: VITAL SIGNS: Noted. Blood pressure 167/70. The patient has a T-max of 100.9, respiratory rate 16, pulse 107. LUNGS: Clear to auscultation bilaterally. CARDIOVASCULAR: S1 and S2. No rub ABDOMEN: Soft, nontender. EXTREMITIES: No edema. LABS: Hemoglobin 9.0. Chemistries; sodium 138, potassium 3.1, chloride 100, bicarb 27, BUN 22, creatinine 3.75, magnesium 1.1, phosphorus is 1.9. IMPRESSION AND PLAN: 1. End-stage renal disease. We will continue peritoneal dialysis. Overall, the patient's clinical status and condition is improving. Overall, breathing has improved as well. Chest x-ray is improved as well. We will continue to monitor closely. Continue current PD orders. 2. Hypertension. Blood pressure is stable. Continue to monitor. 3. Hypomagnesemia, replaced with 3 g of mag sulfate IV. 4. Hypophosphatemia. We will replace with potassium phosphate 30 millimoles IV over 6 hours. Rivera Carter MD /MODL /[id number]
[2019-05-20] MEDS: CARVEDILOL 12.5 MG TAB PO SCH (16:40)
[2019-05-20] MEDS: PANTOPRAZOLE SOD 40 MG TABEC PO SCH (16:41)
--- NOTE | 2019-05-20 18:53 | Progress Note ---
DATE: 05/20/2019 Medicine Progress Note SUBJECTIVE: The patient reports still short of breath on examination. She is on 5 L nasal cannula at home. There was evidence of a low-grade fever last night, but the patient is on two heavy blankets, which could explain underlying questionable low-grade fever. I will go ahead and get ID consultation to further evaluate this as well. White count is normal. Body fluid collection still no growth. PHYSICAL EXAMINATION: VITAL SIGNS: Current temperature is 100. Her T-max was found to be 100.9. GENERAL: Not in acute distress, alert and oriented x3. Cooperative on exam. HEENT: Head normocephalic and atraumatic. Eyes, pupils are equal, round, and reactive to light bilaterally. Extraocular movements are intact bilaterally. Throat, no evidence of erythema or exudates in the posterior pharynx. Has poor dentition. NECK: Supple. Good range of motion. PULMONARY: Clear to auscultation bilaterally. No wheezing, no rales, no rhonchi. No crackles appreciated. CARDIOVASCULAR: Positive S1, S2. No murmurs, rubs, or gallops appreciated. ABDOMEN: Soft, nondistended, and nontender to palpation. Bowel sounds present. MUSCULOSKELETAL: Strength is 5/5 throughout. No evidence of any muscle deficits on examination. No weakness appreciated. NEUROLOGICAL: Cranial nerves II through XII are grossly intact. No evidence of any neurological deficits on exam. SKIN: Intact. Warm to touch. Good cap refill. PSYCHIATRIC: Normal affect and mood. EXTREMITIES: No edema. Good range of motion throughout. LABORATORY DATA: White count 8.7, hemoglobin 9, hematocrit is 29.2, platelets of 280. Chemistry; sodium 138, potassium 3.1, chloride 100, bicarb 27, anion gap of 14, BUN 22, creatinine 3.75, glucose is 278, calcium 8.6, phosphorus 1.9, magnesium 1.1. LFTs were normal. Albumin was 2.3. MICROBIOLOGY: Body fluid collection shows no evidence of any infection at this time. Chest x-ray this morning shows improved interstitial edema, bilateral pleural effusion relative to 05/18/2019. IMPRESSION: 1. Abdominal pain, found to be negative for peritonitis, all resolved. 2. End-stage renal disease, on PD. 3. Hypertension, well controlled. 4. Type 2 diabetes. 5. Depression. 6. Shortness of breath with pulmonary edema. 7. Fever with low-grade temperature. PLAN: At this time her abdominal pain resolved. She did receive PD last night with 3 L ultrafiltration. She is scheduled for PD tonight. Blood pressure, diabetes is well controlled and tolerable. The patient does complain of some shortness of breath in which she will get peritoneal dialysis tonight. There is a concern that she has a low-grade fever though there is no current obvious findings at this time. White count is normal. I will go ahead and get an Infectious Disease consultation to further evaluate and treat. It seems that the patient is on 2 to 3 blankets. When the chemist inorganic are testing this, the patient feels very warm leading to a falsely elevated temperature concerning for fever. The patient reports she is doing well, has no complaints at this time. At this time, we will go ahead and get ID consultation and continue with same plan of care with no changes. MD KATHY Morrissey/MAK /[id number]
[2019-05-20] MEDS ORDERED: ACETAMINOPHEN 325 MG TAB PO PRN (21:00)
[2019-05-21] VITALS: BP 109/55
[2019-05-21 04:00] VITALS: BP 181/75
--- NOTE | 2019-05-21 04:05 | NUR ---
Dialysis machine keeps beeping, states to check tubing for patency, lines checked and no kinking noted. Notified dialysis nurse, advised to keep patient connected but turn off machine for now, someone should be here in the morning to fix the issue.
[2019-05-21] MEDS: HYDRALAZINE HCL 100 MG TABLET PO SCH ×2 (05:24→15:14)
[2019-05-21] MEDS: FUROSEMIDE 40 MG TAB PO SCH ×2 (05:24→17:14)
[2019-05-21 05:41] LABS: BASOPHILS % 0.3 % (0.0-1.0); EOSINOPHILS % 0.2 % (0.0-6.0); HEMATOCRIT 27.9 % (34.2-44.1); HEMOGLOBIN 8.4 g/dL (12.0-16.0); LYMPHOCYTES # (AUTO) 1.4 (1.0-3.2); MEAN CORPUSCULAR HEMOGLOBIN 29.3 pg (28-32); MEAN CORPUSCULAR HGB CONC 30.1 g/dL (31-35); MONOCYTES # (AUTO) 0.8 (0.2-0.8); MONOCYTES % 12.8 % (4.4-11.3); NEUTROPHILS # (AUTO) 4.2 (2.1-6.9); NEUTROPHILS % 64.9 % (38.7-80.0); PLATELET COUNT 240 x10e3/uL (140-360); RED BLOOD COUNT 2.87 x10e6/uL (3.6-5.1); RED CELL DISTRIBUTION WIDTH 15.1 % (11.7-14.4)
[2019-05-21 05:43] LABS: MEAN CORPUSCULAR VOLUME 97.2 fL (81-99)
[2019-05-21 06:03] LABS: CALCIUM 8.4 mg/dL (8.4-10.2); CREATININE, SERUM 4.3 mg/dL (0.57-1.11); MAGNESIUM 1.6 MG/DL (1.3-2.1); PHOSPHORUS 4.9 MG/DL (2.3-4.7)
--- NOTE | 2019-05-21 06:21 | Diagnostic Imaging Report ---
EXAMINATION: CHEST SINGLE (PORTABLE) INDICATION: Short of breath COMPARISON: chest radiograph 05/20/2019 FINDINGS: AP view TUBES and LINES: None. LUNGS: There is mild prominence of the central pulmonary vasculature, consistent with pulmonary venous congestion. Persistent hazy opacities in the bilateral mid to lower lungs. PLEURA: Persistent small right pleural effusion. The left hemidiaphragm is not included in field of view. HEART AND MEDIASTINUM: Cardiac size is mildly enlarged. BONES AND SOFT TISSUES: No acute osseous lesion. Soft tissues are unremarkable. UPPER ABDOMEN: No free air under the diaphragm. IMPRESSION: Stable cardiomegaly, with similar pulmonary edema and layering pleural effusions compared to day prior. Signed by: Ravinder Contreras DO on 05/21/2019 6:18 AM
[2019-05-21] MEDS: ALBUTEROL/IPRATROPIUM 3 ML NEB NEB PRN ×4 (07:00→19:40)
--- NOTE | 2019-05-21 07:00 | NUR ---
BEDSIDE SHIFT REPORT RECEIVED FROM THE PUBLIC ACCOUNTANT RN. PER THE REPORT, DIALYSIS COULD NOT COMPLETE YESTERDAY NIGHT DUE TO MACHINE FAILURE. PT DENIES NEEDS AT THIS TIME.
--- NOTE | 2019-05-21 07:30 | NUR ---
CALLED [facility] AND SPOKE TO MS. ARROYO. INFORMED DIALYSIS COULD NOT COMPLETE YESTERDAY NIGHT DUE TO MACHINE FAILURE. PER MS. ARROYO SHE WILL FOLLOW UP WITH THE SAME.
[2019-05-21 07:46] VITALS: BP 166/72
[2019-05-21] MEDS: PANTOPRAZOLE SOD 40 MG TABEC PO SCH (08:15)
--- NOTE | 2019-05-21 08:30 | NUR ---
PUNCHBOARD STUFFER AT BEDSIDE.
[2019-05-21 09:00] VITALS: BP 166/72
[2019-05-21] MEDS: POTASSIUM CHLORIDE 20 MEQ TAB CR PO SCH ×2 (09:00→16:50)
[2019-05-21] MEDS: INSULIN LISPRO 100 UNIT/1 ML 3ML VIAL SQ SCH ×3 (09:00→17:00)
[2019-05-21] MEDS: CARVEDILOL 12.5 MG TAB PO SCH ×2 (09:13→17:14)
[2019-05-21] MEDS: ESCITALOPRAM OXALATE 10 MG TAB PO SCH (09:15)
[2019-05-21] MEDS: CLOPIDOGREL BISULFATE 75 MG TAB PO SCH (09:15)
[2019-05-21] MEDS: AMLODIPINE BESYLATE 10 MG TAB PO SCH (09:16)
[2019-05-21] MEDS: HEPARIN SOD (PORCINE) 5,000 UNIT/ML VIAL SC SCH (09:57)
--- NOTE | 2019-05-21 10:15 | NUR ---
PT POTASSIUM LEVEL IS LOW. PT REFUSED K-DUR TABLET. CALLED DR. PARISI. UNABLE TO LEAVE MESSAGE. VOICE MAIL BOX IS FULL.
--- NOTE | 2019-05-21 11:05 | NUR ---
PAGED DR. PARISI AND INFORMED PT POTASSIUM LEVEL. NO NEW ORDERS RECEIVED.
--- NOTE | 2019-05-21 11:45 | NUR ---
IMM letter delivered and explained to pt. She verbalized understanding. Signed copy placed in chart. Copy left at pt's bedside.
[2019-05-21 12:02] VITALS: BP 133/60
[2019-05-21] MEDS ORDERED: ONDANSETRON HCL 4 MG ORAL DISINTEGRATING TAB PO PRN (13:45)
[2019-05-21] MEDS ORDERED: POTASSIUM CHLORIDE 20MEQ/100ML 200 ML IV ONE (15:00)
--- NOTE | 2019-05-21 15:00 | NUR ---
LINDEN TO DISCHARGE PT PER DR. YU AFTER CONSULTING WITH DR. PARISI.
--- NOTE | 2019-05-21 15:04 | Progress Note ---
DATE: 05/21/2019 SUBJECTIVE: Followed for end-stage renal disease, tolerating her peritoneal dialysis. Breathing has improved significantly. Ultrafiltration was done with a higher dextrose bath dialysate with peritoneal dialysis. The patient has improved significantly with improvement in her blood pressure and improvement in her overall symptoms. No nausea, no vomiting, no shortness of breath at this time. OBJECTIVE: VITAL SIGNS: Noted. Blood pressure 133/68, pulse is afebrile. LUNGS: Clear to auscultation bilaterally. CARDIOVASCULAR: S1, S2. No murmur or rub. ABDOMEN: Soft, nontender. EXTREMITIES: No edema. LABORATORY DATA: Sodium 136, potassium 3, BUN is 23, creatinine is 4.3, phosphorus 4.2, and magnesium 1.6. IMPRESSION AND PLAN: 1. End-stage renal disease. Continue peritoneal dialysis per her orders. We will continue monitor closely. Make further recommendations. 2. Hypertension. Blood pressure is much better controlled. Continue current medications. 3. Anemia of chronic disease, stable H and H. 4. Hypokalemia. Continue to try to encourage to take oral potassium supplements but the patient refuses. Also, we will replace IV if patient is able to tolerate the IV potassium. MD CYRUS Decker/MODL /[id number]
[2019-05-21 16:00] VITALS: BP 149/65
--- NOTE | 2019-05-21 16:05 | NUR ---
LINDEN TO DISCHARGE PT AFTER POTASSIUM IV ADMINISTRATION PER DR. PARISI
--- NOTE | 2019-05-21 19:10 | NUR ---
BEDSIDE SHIFT REPORT GIVEN TO THE BOUNTY TRAPPER RN. PT FAMILY AT BEDSIDE. PT DENIED FURTHER NEEDS.
--- NOTE | 2019-05-21 20:20 | NUR ---
Patient A&O x4, respirations even & unlabored, no distress noted. D/C instructions given & reviewed, patient voices understanding. Potassium infusion completed, IV d/c to right RA, pressure gauze placed & secured w/ tape. Tele # [phone] removed. Patient escorted via wheelchair to front entrance, left w/ daughter in private auto.
--- NOTE | 2019-05-21 23:10 | Consultation ---
DATE OF CONSULTATION: REASON FOR CONSULTATION: Fever. Thank you so much for assisting this patient. HISTORY OF PRESENT ILLNESS: This patient is very pleasant 68-year-old white female with history of end-stage renal disease, on peritoneal dialysis. The patient was admitted with shortness of breath. It was felt probably fluid overload. The patient has been here for the last couple of days; however, she does have low fever. The patient herself tell me that she is feeling well. She wants to go home. There is no nausea, no vomiting, no diarrhea, no urgency, no frequency, and the fluid is really clear. The patient is currently lying in bed comfortably and she wants to go home today. PAST MEDICAL HISTORY: Significant for diabetes mellitus, hypertension, end-stage renal disease, on peritoneal dialysis. PAST SURGICAL HISTORY: Peritoneal dialysis. ALLERGIES: NKA. SOCIAL HISTORY: There is no smoking, drug abuse, or alcohol abuse. FAMILY HISTORY: Hypertension. REVIEW OF SYSTEMS: HEENT: No headache, visual changes, hearing changes. GI: There is no nausea, no vomiting, no diarrhea. CARDIAC: There is no arrhythmia. NEURO: No seizure activity. SKIN: There is no rash. JOINT: There is no erythema or edema. LABORATORY DATA: Since admission reviewed. White count 7.16, hemoglobin of 8.4. Sodium 136, potassium 3.0. Serology is still pending. Her cultures are negative from peritoneal fluid. PHYSICAL EXAMINATION: GENERAL: She is currently alert, oriented, does not seem to be in acute distress. VITAL SIGNS: Stable, currently afebrile. HEENT: She is not icteric. NECK: Supple. CHEST: Clear. HEART: S1 and S2. No S3, S4, or murmur. ABDOMEN: Soft. Bowel sounds present. No tenderness. EXTREMITIES: No edema. SKIN: No rash. IMPRESSION: 1. Low fever, clinically stable. The patient would like to go home, can probably discharge home. Follow up as outpatient. Discussed with the patient. Discussed with Internal Medicine. Discussed with the Renal. 2. Hypertension. 3. End-stage disease. 4. I am not so sure why she is having this fever, but does seem to be infection. We will observe clinically. MD TAMMY Weathers/MAK /[id number]
--- NOTE | 2019-05-22 07:53 | Discharge Summary ---
FINAL DISCHARGE DIAGNOSES: 1. Abdominal pain, resolved, negative for peritonitis. 2. End-stage renal disease, on PD. 3. Respiratory distress secondary to pulmonary edema. 4. Hypertension. 5. Diabetes type 2. 6. Depression. CONSULTANTS: We had Infectious Disease and Nephrology. PHYSICAL EXAMINATION: VITAL SIGNS: Temperature is 97.4, pulse 93, respiratory rate is 23, blood pressure 114/65, pulse ox 98% chronically on 4 L nasal cannula at home. LAB FINDINGS: Show white count 6.4, hemoglobin 8.4, hematocrit 27, and platelets of 240. Chemistry; sodium 136, potassium 3, potassium was replaced, chloride 97, bicarb 27, anion gap 15, BUN 23, creatinine 4.3, glucose is 214, magnesium 1.6, phosphorus 4.9, and calcium 8.4. LFTs within normal range. Troponins were negative. Albumin 2.3, total protein 5.8. Microbiology, peritoneal fluid collection shows no growth, no organism, no WBC seen, no evidence of peritonitis. Chest x-ray on admission shows pulmonary edema. Repeat chest x-ray on 05/21/2019 shows stable cardiomegaly with some pulmonary edema with some mild pleural effusion seen, it has been much improved. 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 The patient had peritoneal fluid collected, showed no evidence of any infection. The patient was given antibiotics at the dialysis unit prior to arrival to the hospital. While here, the patient was not on any antibiotics. Her white count was normal. She had no evidence of fever for more than 36 hours. She did have low-grade temperature, but this was attributed to multiple blankets the patient had on, she had approximately 3-4 blankets on. I discussed this with the nursing staff and asked her son to take blankets off and measure the temperatures closely. I had Infectious Disease come and evaluate the patient. Reports the patient looks well, has no issues. White count normal. She is afebrile for significant period of time and no antibiotics are needed. The patient was also cleared by Renal for discharge home. I also discussed with family, reported it is less likely the patient had any source of infection and she is cleared to be discharged home. I educated the patient in the event she has any complaints or any fever, I said please come back to the hospital for further management and care. She verbalized understanding. The patient was cleared for discharge by ID and Renal. On the day of discharge, vital signs were stable, labs reviewed and stable. The patient seen and evaluated, examined thoroughly on the day of discharge. No other complaints. The patient verbalized understanding and agreed to plan of care to followup appointment as an outpatient with the primary care physician in 1 week. Nephrology as per schedule and ID in about one week time. MEDICATIONS: See med reconciliation form. DISPOSITION: Home. CONDITION: Stable. DIET: Heart healthy. In the event of any worsening symptoms, the patient was advised to come back to the ED for further evaluation. Discharge summary took greater than 35 minutes. MD KATHY Morrissey/MODL /[id number]
== END 2019-05-21 20:44 | disposition home or self-care (01) | DRG 640 ==
LOC: ER 19:17 → ERHOLD 22:01 → MED/SURG2 22:45
PROVIDERS: ADMIT Internal Medicine; ATTEND Internal Medicine
PROC: 3E1M39Z Irrigation of Peritoneal Cavity using Dialysate, Percutaneous Approach (ICD-10-PCS; principal; 2019-05-18)
PROC: 3E1M39Z Irrigation of Peritoneal Cavity using Dialysate, Percutaneous Approach (ICD-10-PCS; 2019-05-19)
PROC: 3E1M39Z Irrigation of Peritoneal Cavity using Dialysate, Percutaneous Approach (ICD-10-PCS; 2019-05-20)
DX: E87.70 Fluid overload, unspecified (principal); N18.6 End stage renal disease; I13.11 Hypertensive heart and chronic kidney disease without heart failure, with stage 5 chronic kidney disease, or end stage renal disease; I50.1 Left ventricular failure, unspecified; Z99.2 Dependence on renal dialysis; Z90.49 Acquired absence of other specified parts of digestive tract; Z82.49 Family history of ischemic heart disease and other diseases of the circulatory system; Z88.5 Allergy status to narcotic agent; D64.9 Anemia, unspecified; E87.6 Hypokalemia; E11.22 Type 2 diabetes mellitus with diabetic chronic kidney disease; Z83.3 Family history of diabetes mellitus; F32.9 Major depressive disorder, single episode, unspecified; D63.8 Anemia in other chronic diseases classified elsewhere; E83.42 Hypomagnesemia; E83.39 Other disorders of phosphorus metabolism; Z79.4 Long term (current) use of insulin; R06.03 Acute respiratory distress
CPT/HCPCS: 36415; 71045; 80048; 80053; 82550; 82553; 82948; 83735; 83880; 84100; 84484; 85025; 86704; 86706; 87070; 87205; 87340; 90962; 93005; 94640; 96372; 97139; 99284; J0360; J1644; J1940; J3475; J3480; J7050